=== PATIENT | male | born 1960 | race African-American/Black ===

== ENCOUNTER 2016-11-16 11:57 | Inpatient (IN) | payer MEDICAID, SELFPAY ==
[2016-11-16] MEDS ORDERED: Fentanyl 100 MCG/2 ML VIAL ONE (12:29)
[2016-11-16 12:49] LABS: #Eosinphils 0.3 thou/uL (0.0-0.7); #Lymphocytes 1.4 thou/uL (1.20-3.40); #Neutrophils 8.3 thou/uL (1.40-6.50); %Basophils 0.3 % (0.0-1.0); %Eosinophils 3.1 % (0.0-10.0); %Monocytes 9.1 % (0.0-10.0); Hematocrit 37.3 % (42.0-52.0); Mean Platelet Volume 7.4 fL (7.4-10.4); Red Blood Cell (RBC) Count 3.77 mill/uL (4.70-6.10); White Blood Cell (WBC) Count 11.1 thou/uL (4.8-10.8)
--- NOTE | 2016-11-16 13:03 | RAD ---
CHEST 2 VIEWS: History Chest pain. COMPARISON: 10/25/16. FINDINGS: Cardiac silhouette is magnified by projection. Pulmonary vasculature is upper limits of normal. Jodi ngs remain hyperinflated with scattered large bullae. Multiple masses within the left lung and at t he left hilum are similar in appearance to the previous exam. No pleural fluid is evident. IMPRESSION: Stable radiographic appearance of the left lung masses and severe emphysematous disease. POS: [facility]
[2016-11-16 13:09] LABS: ALT (SGPT) 13 U/L (8-55); AST (SGOT) 22 U/L (5-34); Alkaline Phosphatase 64 U/L (40-150); Anion Gap 13 mmol/L (10-20); BUN (Urea Nitrogen) 8 mg/dL (8.4-25.7); Bilirubin, Total 0.4 mg/dL (0.2-1.2); Calc. Creatinine Clearance 0 mL/min (70-130); Calcium 9.5 mg/dL (7.8-10.44); Carbon Dioxide 27 mmol/L (22-29); Chloride 101 mmol/L (98-107); Estimated GFR-MDRD Greater than 90; Globulin 3.9 g/dL (2.4-3.5); Protein, Total 7.2 g/dL (6.0-8.3)
[2016-11-16 13:13] LABS: Troponin I Less than 0.010 ng/mL (< 0.028)
[2016-11-16] MEDS ORDERED: Ondansetron ODT 4 MG TAB PO PRN (15:46)
[2016-11-16] MEDS ORDERED: Bisacodyl 5 MG TAB PO PRN (15:46)
[2016-11-16 16:57] VITALS: BMI 20.5
[2016-11-16] MEDS ORDERED: Ketorolac Tromethamine 30 MG/ML VIAL IVP SCH (17:45)
[2016-11-16] MEDS: HYDROcodone/Acetaminophen 10/325 mg Tablet PO PRN ×2 (17:45→23:34)
[2016-11-16 19:29] LABS: Bilirubin Negative (Negative); Blood, Urine Negative (Negative); Glucose, Urine (Dipstick) Negative (Negative); Ketone, Urine Negative (Negative); Nitrite Negative (Negative); Protein, Urine (Dipstick) Negative (Neg-Trace)
[2016-11-16 19:31] LABS: Bacteria/HPF None Seen HPF (None Seen); Hyaline Casts/LPF 0-3 HYALINE CAST LPF (0-3 Hyaline); RBC/HPF 0-3 HPF (0-3); Squamous Epithelial 0-3 HPF (0-3); WBC/HPF 0-3 HPF (0-3)
--- NOTE | 2016-11-16 22:08 | HP-2 ---
CODE STATUS: FULL. PRIMARY CARE PHYSICIAN: [facility]. ATTENDING: Evie Goncalves M.D. PGY1: Eleanor Mcdonnell DO CHIEF COMPLAINT: Shortness of breath and cough. HISTORY OF PRESENT ILLNESS: This is a 56-year-old male with a past medical history of poorly differentiated adenocarcinoma of the lung, emphysema, hypertension, and tobacco abuse that presents with progressive shortness of breath and chest pain with deep inspiration. He endorses cough with white phlegm and blood-tinged sputum that has been present for the past couple of days and has been worsening. He was diagnosed with pneumonia 2-3 weeks ago and treated in the hospital. Cough has been persistent since then. He was diagnosed with lung cancer on 08/29/2016. He is currently on chemotherapy which was initiated right after diagnosis. His last chemo session was 2016. He denies nausea, vomiting, or weakness. He endorses a left-sided headache. He was given DuoNebs and fluids in the ED. PAST MEDICAL HISTORY: 1. Poorly differentiated adenocarcinoma originating from left upper lobe. 2. Hypertension, not on medications. 3. Arthritis. 4. Emphysema. 5. Tobacco abuse. 6. Anxiety/depression. PAST SURGICAL HISTORY: Jaw surgery. ALLERGIES: No known drug allergies. MEDICATIONS: 1. Rhodes 10/325. 2. Keytruda 200 mg every 3 weeks. FAMILY HISTORY: Father has a history of throat cancer and was also a smoker. SOCIAL HISTORY: The patient is a 1-pack per day smoker since the age of 17. He states that he quit 1 month ago. He denies alcohol or drug use. He does have one daughter. REVIEW OF SYSTEMS: A 12-point review of systems was performed, all were negative except as listed in the HPI and as indicated below. The patient does endorse a drastic weight loss since August. He also complains of decreased appetite, night sweats, fatigue. He has vision changes secondary to cataracts. He complains of a cough, shortness of breath, and exercise intolerance as indicated in the HPI. He also endorses chest pain, which is musculoskeletal in nature. It is worse with deep inspiration. The patient also complains of constipation, dysuria, polyuria, and hesitancy. He has pain in his rib cage. He complains of weakness and numbness in the lower abdomen. He also endorses a history of depression. PHYSICAL EXAMINATION: VITAL SIGNS: Blood pressure 127/82, pulse 79, respiratory rate 22, T-max 99.1, pulse ox 99% on room air. Current weight 62.50 kilograms. GENERAL: Patient is alert and oriented x3, no acute distress, well-developed. He is thin, appropriately interactive. EYES: Eyes are not reactive to light. Conjunctivae within normal limits. ENT: Nasal mucosa within normal limits. NECK: Supple with lymphadenopathy bilaterally. CARDIOVASCULAR: Regular rate and rhythm. No murmurs or gallops. Radial and pedal pulses 2+. RESPIRATORY: Normal respiratory effort, no retractions. LUNGS: Clear to auscultation bilaterally. SKIN: Skin is warm and dry without evidence of cyanosis or lesions. ABDOMEN: Soft, tender to palpation in the right lower quadrant. Bowel sounds are positive in all 4 quadrants. No masses or distention. Prostate exam was performed. Prostate was enlarged and nodular. No hematochezia or evidence of hemorrhoids. Patient tolerated exam. EXTREMITIES: No clubbing, cyanosis, or edema. MUSCULOSKELETAL: Structure within normal limits. There is decreased tone. He has full range of motion. Patient was tender to palpation in the left rib cage and he did complain of tenderness underneath the nipple. There was a soft movable mass underneath the left nipple. NEUROLOGIC: No focal deficits. Cranial nerves II through XII intact. GCS 15. PSYCHIATRIC: Appropriate. LABORATORY DATA: 1. CBC: White blood cell count 11.1, hemoglobin 12.4, hematocrit 37.3, platelets of 394. 2. CMP: Sodium 137, potassium 3.5, chloride 101, bicarb 27, BUN 13, creatinine 8, glucose 88, calcium 9.5, total bilirubin 0.4, total protein 7.2, albumin 3.3, AST 22, ALT 13, alkaline phosphatase 64. 3. CK-MB 1, troponin less than 0.010. 4. Chest x-ray shows a stable appearance of left lung mass and severe emphysematous changes. ASSESSMENT AND PLAN: This is a 56-year-old male with past medical history of poorly differentiated adenocarcinoma of the lung, presents with a cough and shortness of breath. 1. Acute hypoxic respiratory failure secondary to chronic obstructive pulmonary disease exacerbation. The patient was started on Levaquin and prednisone. He has duonebs scheduled. One dose of Toradol was given for relief of musculoskeletal pain. Of note, troponin was negative. A 6-minute walk test was performed per nursing and they state that the oxygen level immediately dropped in the 70s upon walking. Case management will be consulted for administration of home oxygen. 2. Poorly differentiated adenocarcinoma of lung. The patient is currently on chemotherapy/immunotherapy with Keytruda 200 mg every 3 weeks. He was diagnosed in 08/2016. Palliative Care was consulted last time patient was in the hospital. We will consider consulting palliative care again during this hospital stay. Pain management with home medication. 3. Hemoptysis. This is likely associated with lung cancer and acute on chronic obstructive pulmonary disease exacerbation. We will continue to monitor and treat as appropriate. 4. Urinary retention. The patient has a history of urinary hesitancy and frequency. Postvoid residual was performed, which showed 127 mL. The UA is pending along with urine culture and PSA. Prostate exam was performed and did show evidence of an enlarged prostates and nodules, particularly on the right side. Flomax was started at this time. We will await the results of labs. DISPOSITION AND LENGTH OF HOSPITAL STAY: 2 days. Symptomatic medication will be provided. History and physical exam as well as management discussed with Dr. Goncalves. NAVYA
[2016-11-16] MEDS: Tamsulosin HCl 0.4 MG CAP PO SCH (22:23)
[2016-11-17] MEDS: HYDROcodone/Acetaminophen 10/325 mg Tablet PO PRN ×2 (04:40→08:45)
[2016-11-17 05:08] LABS: #Basophils 0.1 thou/uL (0.0-0.2); #Eosinphils 0.4 thou/uL (0.0-0.7); #Lymphocytes 1.4 thou/uL (1.20-3.40); #Neutrophils 5.7 thou/uL (1.40-6.50); %Basophils 0.7 % (0.0-1.0); %Lymphocytes 16.1 % (21.0-51.0); %Monocytes 11.2 % (0.0-10.0); Hematocrit 35.4 % (42.0-52.0); Mean Platelet Volume 7.1 fL (7.4-10.4); Red Blood Cell (RBC) Count 3.57 mill/uL (4.70-6.10); White Blood Cell (WBC) Count 8.6 thou/uL (4.8-10.8)
[2016-11-17 05:47] LABS: Anion Gap 12 mmol/L (10-20); BUN (Urea Nitrogen) 11 mg/dL (8.4-25.7); Calc. Creatinine Clearance 83 mL/min (70-130); Calcium 8.8 mg/dL (7.8-10.44); Carbon Dioxide 28 mmol/L (22-29); Chloride 101 mmol/L (98-107); Estimated GFR-MDRD Greater than 90
--- NOTE | 2016-11-17 06:45 | PDOC.FM ---
- Subjective Subjective: Patient doing well this AM. Still endorses cough with phlegm, but feels he is much improved after duoneb treatments. Apparently, nurse called [facility] rather than residency team regarding patient's poor pain control. [facility] ordered morphine for patient. I was given report this morning from morning nurse. Patient did not complain of any pain this AM. - Objective MAR Reviewed: Yes Vital Signs & Weight: Vital Signs (12 hours) Temp Pulse Resp BP Pulse Ox 11/17/16 02:01 93 18 99 11/17/16 00:00 98 11/16/16 23:40 98.6 F 87 20 138/79 97 11/16/16 23:23 80 18 100 11/16/16 20:00 98.6 F 87 20 11/16/16 19:37 99.1 F 88 20 120/66 98 Weight Weight 55.877 kg I&O: 11/15/16 11/16/16 11/17/16 06:59 06:59 06:59 Intake Total 700 Output Total 350 Balance 350 Result Diagrams: 11/17/16 04:51 11/17/16 04:51 EKG Reviewed by me: Yes Radiology Reviewed by me: Yes <Eleanor Mcdonnell - Last Filed: 11/17/16 10:58> - Objective Vital Signs & Weight: Vital Signs (12 hours) Temp Pulse Resp Pulse Ox 11/17/16 14:17 91 20 11/17/16 11:00 85 20 11/17/16 08:00 98.3 F 89 20 11/17/16 07:01 98 11/17/16 06:59 89 18 98 Weight Weight 123 lb 3 oz I&O: 11/16/16 11/17/16 11/18/16 06:59 06:59 06:59 Intake Total 700 Output Total 350 Balance 350 Result Diagrams: 11/17/16 04:51 11/17/16 04:51 <Evie Goncalves - Last Filed: 11/17/16 14:23> Phys Exam - Physical Examination Constitutional: NAD Coughing on exam HEENT: moist MMs Icteric slcera Neck: full ROM Lymphadenopathy cervical Respiratory: no wheezing, no rales, no rhonchi, clear to auscultation bilateral Cardiovascular: RRR, no significant murmur, no rub Gastrointestinal: soft, non-tender, no distention, positive bowel sounds Musculoskeletal: no edema, pulses present Breast bud like lump under left nipple. Painful to palpation Neurological: non-focal, moves all 4 limbs Psychiatric: normal affect, A&O x 3 Skin: cap refill <2 seconds Deviation from normal: tattoos <Eleanor Mcdonnell - Last Filed: 11/17/16 10:58> Dx/Plan (1) Acute respiratory failure with hypoxia Code(s): J96.01 - ACUTE RESPIRATORY FAILURE WITH HYPOXIA Status: Acute Plan: -2/2 COPD exacerbation -Patient desatting into upper 70's/low 80's when ambulating -CM consult for home O2 -Levoquin Day #2 -Steroids -Duonebs BLANCA and PRN -O2 monitoring (2) COPD with acute exacerbation Code(s): J44.1 - CHRONIC OBSTRUCTIVE PULMONARY DISEASE W (ACUTE) EXACERBATION Status: Acute Plan: -Severe emphysematous changes seen on cxr -Increased sputum production over the last several weeks -Levoquin day #2 -Steroids -Duonebs BLANCA and PRN (3) Adenocarcinoma of left lung Code(s): C34.92 - MALIGNANT NEOPLASM OF UNSP PART OF LEFT BRONCHUS OR LUNG Status: Acute Plan: -Stage IV poorly differentiated adenocarcinoma of lung -Diagnosed in August of 2016 -Has been undergoing immunotherapy since August; Keytruda 200 mg/q3w -Last immunotherapy 10/30/2016 -Follows with Dr. Ludwig -Painful lymph nodes; morphine PRN for pain and lidocaine patches PRN (4) HTN (hypertension), benign Code(s): I10 - ESSENTIAL (PRIMARY) HYPERTENSION Status: Acute Plan: -Untreated -Has been well controlled -138/79 today (5) Arthritis Code(s): M19.90 - UNSPECIFIED OSTEOARTHRITIS, UNSPECIFIED SITE Status: Acute Plan: -Not currently on any medications -Likely OA (6) Depression Code(s): F32.9 - MAJOR DEPRESSIVE DISORDER, SINGLE EPISODE, UNSPECIFIED Status : Acute (7) Tobacco dependence Code(s): F17.200 - NICOTINE DEPENDENCE, UNSPECIFIED, UNCOMPLICATED Status: Chronic Plan: -Schedule Hanger on cessation -States that he quit 1 month ago -Nicotine patch if desired (8) Urinary retention Code(s): R33.9 - RETENTION OF URINE, UNSPECIFIED Status: Acute Plan: -Difficulty urinating, hesitancy, frequency -Enlarged, nodular prostate on exam -PSA pending <Eleanor Mcdonnell - Last Filed: 11/17/16 10:58> Attending Addendum - Attending Addendum I personally evaluated the patient and discussed the management with Dr. Mcdonnell. I agree with the History, Examination, Assessment and Plan documented above with any addition or exceptions noted below. Patient still has lots of RLQ and right inguinal pain from lymph nodes. Also c/ o chest pain from lymph nodes/cancer. Able to urinate with Flomax and urine culture is pending. Will try Lidoderm patches for pain. Patient now has Medicaid , so will be able to get the medicine on discharge from hospital. If pain continues to be a problem, would consider adding scheduled morphine vs. discussing with Dr. Ludwig what his preferences are. PSA is still pending. Expect it to be high because prostate was nodular and enlarged. Will probably need outpatient urology evaluation for this. <Evie Goncalves - Last Filed: 11/17/16 14:23>
[2016-11-17] MEDS: predniSONE 20 MG TAB PO SCH (08:02)
[2016-11-17] MEDS ORDERED: FLU VACC QS2017-18 36 mo. & older 0.5 ML SYRINGE IM ONE (09:00)
[2016-11-17] MEDS: HYDROcodone/Acetaminophen 10/325 mg Tablet PO SCH ×3 (13:09→20:58)
[2016-11-17] MEDS: Tamsulosin HCl 0.4 MG CAP PO SCH (20:58)
[2016-11-18] MEDS: HYDROcodone/Acetaminophen 10/325 mg Tablet PO SCH ×3 (01:04→08:42)
[2016-11-18 05:03] LABS: #Eosinphils 0.1 thou/uL (0.0-0.7); #Lymphocytes 1.3 thou/uL (1.20-3.40); #Monocytes 0.8 thou/uL (0.11-0.59); #Neutrophils 9.8 thou/uL (1.40-6.50); %Basophils 0.1 % (0.0-1.0); %Eosinophils 0.6 % (0.0-10.0); %Lymphocytes 11.1 % (21.0-51.0); %Monocytes 6.9 % (0.0-10.0); Hematocrit 34.1 % (42.0-52.0); Mean Platelet Volume 7.3 fL (7.4-10.4); Red Blood Cell (RBC) Count 3.44 mill/uL (4.70-6.10)
[2016-11-18 05:15] LABS: Anion Gap 11 mmol/L (10-20); BUN (Urea Nitrogen) 9 mg/dL (8.4-25.7); Calc. Creatinine Clearance 89 mL/min (70-130); Calcium 9.2 mg/dL (7.8-10.44); Carbon Dioxide 27 mmol/L (22-29); Chloride 100 mmol/L (98-107); Estimated GFR-MDRD Greater than 90
--- NOTE | 2016-11-18 06:59 | PDOC.FM ---
- Subjective Subjective: No acute events overnight. Pt denies shortness of breath this morning. - Objective MAR Reviewed: Yes Vital Signs & Weight: Vital Signs (12 hours) Temp Pulse Resp BP Pulse Ox 11/18/16 05:55 91 18 97 11/18/16 02:08 90 18 98 11/17/16 23:04 91 18 98 11/17/16 20:00 98.3 F 101 H 12 98 11/17/16 19:59 98.3 F 101 H 12 129/63 98 Weight Weight 55.877 kg I&O: 11/16/16 11/17/16 11/18/16 06:59 06:59 06:59 Intake Total 700 1200 Output Total 350 3000 Balance 350 -1800 Result Diagrams: 11/18/16 04:37 11/18/16 04:37 Phys Exam - Physical Examination Constitutional: NAD HEENT: PERRLA, moist MMs, sclera anicteric Neck: no nodes Respiratory: no wheezing, no rales, no rhonchi Cardiovascular: RRR, no significant murmur, no rub Gastrointestinal: soft, non-tender, no distention, positive bowel sounds Musculoskeletal: no edema, pulses present Psychiatric: normal affect, A&O x 3 Dx/Plan (1) Acute respiratory failure with hypoxia Code(s): J96.01 - ACUTE RESPIRATORY FAILURE WITH HYPOXIA Status: Acute (2) COPD with acute exacerbation Code(s): J44.1 - CHRONIC OBSTRUCTIVE PULMONARY DISEASE W (ACUTE) EXACERBATION Status: Acute (3) Adenocarcinoma of left lung Code(s): C34.92 - MALIGNANT NEOPLASM OF UNSP PART OF LEFT BRONCHUS OR LUNG Status: Acute (4) Urinary retention Code(s): R33.9 - RETENTION OF URINE, UNSPECIFIED Status: Acute - Plan Plan: 1.)Acute Respiratory Failure with hypoxia-improved. Plan: Will talk with case management to get paperwork filled out for home oxygen. Continue duonebs scheduled and prn Continue Levaquin for 7 days Continue steroids for 5 days albuterol prn 2.)COPD with acute exacerbation- see above 3.)Adenocarcinoma of lung-chronic Plan: -Pt gets infusion treatments every three weeks with oncology; next one scheduled is on Monday 11/20 -Pain control: morphine and norco -topical lidocaine patch for painful lymph nodes 4.)Urinary Retention-improved Plan: -Pt's post void residual bladder scan showed ~130ml; pt was started on flomax and symptoms have improved. -PSA pending -Recommend outpatient follow-up with urology.
[2016-11-18] MEDS: predniSONE 20 MG TAB PO SCH (08:18)
[2016-11-18] MEDS: Lidocaine 5% Patch TD SCH (08:20)
[2016-11-18] MEDS ORDERED: Lidocaine 5% Patch TD SCH (09:00)
[2016-11-18] MEDS ORDERED: Pembrolizumab 200 MG in Sodium Chloride 0.9% 250 ML 250 ML IV SCH (12:00)
[2016-11-18] MEDS ORDERED: HYDROcodone/Acetaminophen 10/325 mg Tablet PO PRN (12:03)
[2016-11-18 12:57] LABS: ALT (SGPT) 13 U/L (8-55); AST (SGOT) 18 U/L (5-34); Alkaline Phosphatase 60 U/L (40-150); Anion Gap 14 mmol/L (10-20); BUN (Urea Nitrogen) 9 mg/dL (8.4-25.7); Bilirubin, Total 0.5 mg/dL (0.2-1.2); Calc. Creatinine Clearance 81 mL/min (70-130); Calcium 9.7 mg/dL (7.8-10.44); Carbon Dioxide 25 mmol/L (22-29); Chloride 99 mmol/L (98-107); Estimated GFR-MDRD Greater than 90; Globulin 3.9 g/dL (2.4-3.5); Protein, Total 7.3 g/dL (6.0-8.3); Uric Acid 5.2 mg/dL (3.5-7.2)
[2016-11-18] MEDS: HYDROcodone/Acetaminophen 10/325 mg Tablet PO PRN ×2 (13:27→19:44)
--- NOTE | 2016-11-18 14:03 | CON ---
DATE OF CONSULTATION: 11/18/2016 REASON FOR CONSULTATION: Lung cancer. HISTORY OF PRESENT ILLNESS: Mr. Bowling is an unfortunate 56-year-old gentleman who was diagnosed wit h stage IV adenocarcinoma of the lung in 08/2016. He was PD-L1 positive and began treatment with Ke ytruda immunotherapy on Friday10/09/2016, he has received 2 cycles. He presented to the emergen cy room on the with complaints of shortness of breath and chest pain with inspiration. His oxyg en level dropped into the 70s with ambulation. There was some questionable pneumonia, so he was adm itted and has been treated with antibiotics. During the course of the stay, he has slowly improved. His pain has been persistent and has had at the left chest area just below the nipple. He has bee n getting [place] round the clock with p.r.n. IV morphine. He is due for his third cycle of Keytruda on Friday11/20/2016. PAST MEDICAL HISTORY: 1. Metastatic adenocarcinoma of the lung. 2. Emphysema. 3. Arthritis. 4. Essential hypertension 5. Tobacco use. 6. Anxiety and depression. PAST SURGICAL HISTORY: A CT guided biopsy of the lung in August. ALLERGIES: No known drug allergies. HOME MEDICATIONS: [place] 10/325 one to two tablets q.6 hours p.r.n. pain. FAMILY HISTORY: His father has a history of throat cancer and smoking. SOCIAL HISTORY: Single, has one daughter who lives in [place]. Everyday smoker, with 20-pack-ye ar history. No alcohol or illicit drug use. REVIEW OF SYSTEMS: Twelve point review of systems is negative except for noted in HPI. PHYSICAL EXAMINATION: VITAL SIGNS: Temperature is 96.7, pulse is 85, respiratory rate 18, BP is 127/71, he is 97% on room air. GENERAL: Cachectic male in no acute distress. HEENT: Normocephalic, atraumatic. Pupils are equal and reactive to light. NECK: Supple without JVD or masses. CARDIOVASCULAR: Regular rate and rhythm. LUNGS: Clear, but diminished throughout. ABDOMEN: Soft, nontender, bowel sounds are positive. EXTREMITIES: No clubbing, cyanosis or edema. SKIN: No rash. LYMPHATIC: No adenopathy. NEUROLOGIC: Nonfocal. PSYCHIATRIC: Alert, oriented and appropriate. PERTINENT LABORATORY AND X-RAYS: Current WBCs are 12, hemoglobin 10.9, hematocrit 34.1, platelet co unt is 336,000. He has 82% neutrophils, 11% lymphocytes. Sodium 134, potassium 3.9, chloride 100, CO2 is 27, BUN is 9, creatinine is 0.72, calcium is 9.2. Chest x-ray showed stable appearance of hi s left lung mass and severe emphysema disease, no acute findings. ASSESSMENT AND PLAN: 1. Metastatic lung cancer. 2. Chronic obstructive pulmonary disease exacerbation and pain related to #1. DISCUSSION: Patient is due for Keytruda on Friday. We will give a dose while inpatient either t palmer or tomorrow. We will adjust his [place] to his home dosage, which is 2 q.6 hours. We will ask h im to limit morphine so we can make sure pain control prior to departure. He will be discharged herman e after chemotherapy or whenever it is okay with the [facility]. Thank you for the consult.
--- NOTE | 2016-11-18 14:10 | ADD-PRG ---
DATE OF SERVICE: 11/18/2016 This is an addendum to the note of Dr. Denise Mar. Mr. Bowling is resting comfortably this morning. His walk test revealed significant hypoxia. We are arranging for home O2. He will be discharged later today and continue to follow Oncology for treatm ent of his adenocarcinoma of the lung. We have also started Flomax for his BPH.
[2016-11-18] MEDS: Tamsulosin HCl 0.4 MG CAP PO SCH (19:45)
[2016-11-18] MEDS ORDERED: Lidocaine Patch Removal TOP SCH (21:00)
[2016-11-19] MEDS: HYDROcodone/Acetaminophen 10/325 mg Tablet PO PRN ×2 (01:51→08:00)
[2016-11-19 04:15] LABS: Free PSA 0.14 ng/mL
[2016-11-19 05:05] LABS: #Basophils 0.1 thou/uL (0.0-0.2); #Eosinphils 0.1 thou/uL (0.0-0.7); #Monocytes 1.1 thou/uL (0.11-0.59); #Neutrophils 11.8 thou/uL (1.40-6.50); %Basophils 0.5 % (0.0-1.0); %Eosinophils 0.4 % (0.0-10.0); %Lymphocytes 13.2 % (21.0-51.0); %Monocytes 7.1 % (0.0-10.0); Hematocrit 36.7 % (42.0-52.0); Mean Platelet Volume 7.3 fL (7.4-10.4); White Blood Cell (WBC) Count 14.9 thou/uL (4.8-10.8)
[2016-11-19 05:39] LABS: Anion Gap 13 mmol/L (10-20); BUN (Urea Nitrogen) 13 mg/dL (8.4-25.7); Calc. Creatinine Clearance 80 mL/min (70-130); Calcium 9.9 mg/dL (7.8-10.44); Carbon Dioxide 29 mmol/L (22-29); Chloride 100 mmol/L (98-107); Estimated GFR-MDRD Greater than 90
--- NOTE | 2016-11-19 06:35 | PDOC.FM ---
- Subjective Subjective: No acute complaints this morning. Denies shortness of breath. No concerns. - Objective MAR Reviewed: Yes Vital Signs & Weight: Vital Signs (12 hours) Temp Pulse Resp BP Pulse Ox 11/19/16 06:06 88 16 99 11/19/16 02:11 79 16 98 11/18/16 22:08 83 16 97 11/18/16 20:00 98.7 F 83 16 100 11/18/16 19:15 98.7 F 83 16 135/60 100 11/18/16 19:01 99 16 97 11/18/16 19:00 98.7 F 83 16 135/60 100 Weight Admit Weight 55.792 kg Weight 55.792 kg I&O: 11/17/16 11/18/16 11/19/16 06:59 06:59 06:59 Intake Total 700 1200 480 Output Total 350 3000 1200 Balance 350 1800 -720 Result Diagrams: 11/19/16 04:38 11/19/16 04:38 Phys Exam - Physical Examination HEENT: PERRLA, moist MMs, sclera anicteric Neck: no nodes, no JVD decreased breath sounds bilaterally; no wheezing Cardiovascular: RRR, no significant murmur, no rub, gallop Gastrointestinal: soft, non-tender, no distention, positive bowel sounds Musculoskeletal: no edema, pulses present Neurological: non-focal, normal sensation, moves all 4 limbs Lymphatic: no nodes Psychiatric: normal affect, A&O x 3 Skin: no rash Dx/Plan (1) Acute respiratory failure with hypoxia Code(s): J96.01 - ACUTE RESPIRATORY FAILURE WITH HYPOXIA Status: Acute (2) COPD with acute exacerbation Code(s): J44.1 - CHRONIC OBSTRUCTIVE PULMONARY DISEASE W (ACUTE) EXACERBATION Status: Acute (3) Adenocarcinoma of left lung Code(s): C34.92 - MALIGNANT NEOPLASM OF UNSP PART OF LEFT BRONCHUS OR LUNG Status: Acute (4) Urinary retention Code(s): R33.9 - RETENTION OF URINE, UNSPECIFIED Status: Acute - Plan Plan: 1.)Acute Respiratory Failure with hypoxia-improved. Plan: Pt approved for home O2. Continue duonebs scheduled and prn Continue Levaquin 750mg for 5 days Continue steroids for 5 days albuterol prn 2.)COPD with acute exacerbation- see above provided spiriva upon discharge. 3.)Adenocarcinoma of lung-chronic Plan: -Pt is s/p infusion treatment yesterday (11/18) -Pain control: morphine and norco -topical lidocaine patch for painful lymph nodes 4.)Urinary Retention-improved Plan: -Pt's post void residual bladder scan showed ~130ml; pt was started on flomax and symptoms have improved. -PSA pending -Recommend outpatient follow-up with urology. Dispo:Discharge home today Recommend close follow-up with Onc and PCP at [facility]. Pt can see us at [facility] if [facility] wont see him since he has medicaid now.
[2016-11-19 07:48] VITALS: BP 126/77; TEMP 98.5
[2016-11-19] MEDS: predniSONE 20 MG TAB PO SCH (08:02)
[2016-11-19] MEDS: Lidocaine 5% Patch TD SCH (08:04)
--- NOTE | 2016-11-19 11:55 | ADD-PRG ---
DATE OF SERVICE: 11/19/2016 This is an addendum to the note of Dr. Denise Mar. Mr. Bowling is resting comfortably with no new complaints. His oxygen has been ordered and is at the bedside. He is awaiting his [place] prescription from Oncology and thereafter will be discharged to [facility] up with them.
--- NOTE | 2016-11-20 11:18 | DIS-2 ---
DATE OF ADMISSION: 11/16/2016 DATE OF DISCHARGE: 11/19/2016 LOCATION: [facility]. ADMITTING RESIDENT: Eleanor Mcdonnell DO ADMITTING PHYSICIAN: Evie Goncalves M.D. DISCHARGE RESIDENT: Denise Sweeney MD DISCHARGE ATTENDING: Bhupendra Craig MD CONSULT: Oncology, case management, Palliative Care were all consulted. PROCEDURES: Chest x-ray which showed a stable radiographic appearance of the left lung masses and s evere emphysematous disease. PRIMARY DIAGNOSIS: Acute hypoxic respiratory failure secondary to chronic obstructive pulmonary dis ease exacerbation. SECONDARY DIAGNOSES: 1. Chronic obstructive pulmonary disease exacerbation. 2. Poorly differentiated adenocarcinoma of the lung. 3. Hypertension. 4. Arthritis. 5. Anxiety. 6. Depression. DISCHARGE MEDICATIONS: Levaquin 750 mg p.o. daily, tamsulosin 0.4 mg p.o. at night, Spiriva 18 mcg inhaled daily, prednisone 40 mg p.o. q.a.m. with meals. Forbes 10/325, 1-2 tabs every 6 hours as nee ded for pain. HISTORY OF PRESENT ILLNESS AND HOSPITAL COURSE: A 56-year-old male with a past medical history of p oorly differentiated adenocarcinoma of the lung, emphysema, hypertension and tobacco abuse who prese nts with progressive shortness of breath and chest pain with deep inspiration. The patient endorses cough with white phlegm and blood tinged sputum that has been present for the past couple days and has been worsening. The patient was diagnosed with pneumonia, treated 2 weeks ago and treated in [facility]. Cough has been persistent since then. He was diagnosed with adenocarcinoma of the lung on 08/29/2016. He is currently on chemotherapy which was initiated right after diagnosis. His las t chemo session was on 10/30/2016. On initial presentation, the patient denied nausea, vomiting or weakness. The patient did endorse a left-sided headache. The patient was given DuoNebs and fluids in the ER. The patient says he smokes a pack per day since age of 17. The patient has an approxima tely [id number] history. On admission, the patient's vital signs were within normal limits. The patient was not in respiratory distress. However, the patient's white blood cell count was 11.1. T he patient's CK-MB was normal and troponins were less than 0.01. The patient had a chest x-ray done , which showed a stable appearance of left lung mass and severe emphysematous change. The patient w as admitted for acute hypoxic respiratory failure secondary to chronic obstructive pulmonary disease exacerbation. 1. Acute hypoxic respiratory failure secondary to chronic obstructive pulmonary disease exacerbatio n. The patient was started on Levaquin and prednisone. The patient was provided with DuoNeb schedu led. The patient was given 1 dose of Toradol for relief of musculoskeletal pain. The patient's tro ponins were negative. The patient conducted a 6-minute walking test, which resulted in the patient desatting to the 70s upon walking. Case management was consulted and was able to assist in providin g the patient with home oxygen through approval of his insurance. The patient's exacerbation, impro sandra. The patient upon discharge was saturating in the mid to upper 90s on room air while sitting. It is just of note that patient continues to desat with walking; however, will have home oxygen now to assist with this pathology. 2. Poorly differentiated adenocarcinoma of the lung. The patient is currently on chemo/immunothera py with Keytruda 200 mg every 3 weeks. The patient was diagnosed in 08/2016. Since the patient is from out of town, we coordinated care with Oncology for him to receive his infusion immunotherapy tr eatment during his hospital stay. In addition, Palliative Care was consulted last time the patient was in the hospital and again was consulted at this time; however, the patient would like to continu e in a current chemo/immunotherapy, he is not interested in hospice at this time. 3. Urinary retention. The patient has a history of urinary hesitancy and frequency. A postvoid bl adder scan was performed, which showed 127 mL left in his bladder, which does not reflect a huge mariah unt of retention; however, the patient's prostate exam was performed and did show evidence of an enl arged prostate with nodule, particularly on the right side. Flomax was started and we recommended o utpatient followup if symptoms return. DISPOSITION: Stable. DISCHARGE INSTRUCTIONS: 1. Location: Home. 2. Diet: No restrictions. 3. Activity: As tolerated. Recommend wearing oxygen with ambulation. 4. Followup: Follow up with primary care provider at [facility] as well as Oncology within the next week.
== END 2016-11-19 12:10 | disposition home or self-care (01) | DRG 189 ==
LOC: ERS 11:57 → ONC 15:18 → INTOOBSV 15:18 → OBSVTOIN 15:18
PROVIDERS: ADMIT Family Medicine; ATTEND Family Medicine
DX: J96.01 Acute respiratory failure with hypoxia (principal); J44.1 Chronic obstructive pulmonary disease with (acute) exacerbation; C34.12 Malignant neoplasm of upper lobe, left bronchus or lung; N13.8 Other obstructive and reflux uropathy; I10 Essential (primary) hypertension; M19.90 Unspecified osteoarthritis, unspecified site; R33.8 Other retention of urine; N40.1 Benign prostatic hyperplasia with lower urinary tract symptoms; F17.210 Nicotine dependence, cigarettes, uncomplicated; F32.9 Major depressive disorder, single episode, unspecified; F41.9 Anxiety disorder, unspecified; Z92.21 Personal history of antineoplastic chemotherapy; Z80.1 Family history of malignant neoplasm of trachea, bronchus and lung; Z81.2 Family history of tobacco abuse and dependence
CPT/HCPCS: 36415; 71020; 80048; 80053; 81001; 82553; 84153; 84154; 84484; 84550; 85025; 87086; 93005; 94640; 96374; J1885; J1956; J2270; J3010; J7050; J7506; J7620; J9271

== ENCOUNTER 2016-11-23 23:07 | Inpatient (IN) | payer MEDICAID, SELFPAY ==
[~2016-11-23 23:07] MED LIST: ISOVUE-370 76%-LOCM 1 ML ONE
[2016-11-23 23:41] LABS: #Basophils 0.1 thou/uL (0.0-0.2); #Eosinphils 0.5 thou/uL (0.0-0.7); #Monocytes 0.9 thou/uL (0.11-0.59); #Neutrophils 10.7 thou/uL (1.40-6.50); %Basophils 0.6 % (0.0-1.0); %Eosinophils 3.8 % (0.0-10.0); %Monocytes 6.4 % (0.0-10.0); Hematocrit 36.1 % (42.0-52.0); Mean Platelet Volume 7.2 fL (7.4-10.4); Red Blood Cell (RBC) Count 3.65 mill/uL (4.70-6.10); White Blood Cell (WBC) Count 14.3 thou/uL (4.8-10.8)
[2016-11-23 23:56] LABS: Lactic Acid - Sepsis 2.1 mmol/L (0.5-2.2)
[2016-11-24] LABS: ALT (SGPT) 12 U/L (8-55); AST (SGOT) 19 U/L (5-34); Alkaline Phosphatase 59 U/L (40-150); Anion Gap 13 mmol/L (10-20); BUN (Urea Nitrogen) 12 mg/dL (8.4-25.7); Bilirubin, Total 0.3 mg/dL (0.2-1.2); Calc. Creatinine Clearance 0 mL/min (70-130); Calcium 9.1 mg/dL (7.8-10.44); Carbon Dioxide 23 mmol/L (22-29); Chloride 103 mmol/L (98-107); Estimated GFR-MDRD Greater than 90; Globulin 3.5 g/dL (2.4-3.5); Lipase 34 U/L (8-78); Protein, Total 6.7 g/dL (6.0-8.3)
[2016-11-24 00:04] LABS: Troponin I Less than 0.010 ng/mL (< 0.028)
[2016-11-24 02:23] LABS: Bilirubin Negative (Negative); Blood, Urine Negative (Negative); Glucose, Urine (Dipstick) Negative (Negative); Ketone, Urine Trace mg/dL (Negative); Nitrite Negative (Negative); Protein, Urine (Dipstick) Negative (Neg-Trace)
[2016-11-24] MEDS ORDERED: Sodium Chloride 0.45% 1,000 ML IV SCH (02:30)
[2016-11-24] MEDS ORDERED: Acetaminophen 325 MG TAB PO PRN (02:30)
[2016-11-24] MEDS ORDERED: HYDROcodone/Acetaminophen 5/325 mg Tablet PO PRN ×2 (02:30)
[2016-11-24] MEDS ORDERED: Ondansetron ODT 4 MG TAB SL PRN (02:30)
[2016-11-24] MEDS ORDERED: Ondansetron HCl/PF 4 MG/2 ML Vial IVP PRN (02:30)
[2016-11-24 02:53] VITALS: BMI 21.2
[2016-11-24] MEDS ORDERED: Ibuprofen 800 MG TAB PO PRN (02:58)
[2016-11-24] MEDS ORDERED: Bisacodyl 5 MG TAB PO PRN (02:58)
[2016-11-24] MEDS ORDERED: Ondansetron ODT 4 MG TAB PO PRN (02:58)
[2016-11-24] MEDS ORDERED: Albuterol Sulfate 2.5 mg/3 ml Neb NEB PRN (02:58)
[2016-11-24] MEDS ORDERED: Milk Of Magnesia 30 ML UDCUP PO PRN (02:58)
[2016-11-24] MEDS: Sodium Chloride 0.9% 1,000 ML IV SCH ×3 (03:24→22:26)
[2016-11-24 03:42] LABS: #Eosinphils 0.1 thou/uL (0.0-0.7); #Lymphocytes 0.8 thou/uL (1.20-3.40); #Monocytes 0.1 thou/uL (0.11-0.59); #Neutrophils 12.6 thou/uL (1.40-6.50); %Basophils 0.1 % (0.0-1.0); %Eosinophils 0.6 % (0.0-10.0); %Lymphocytes 5.9 % (21.0-51.0); Hematocrit 38.1 % (42.0-52.0); Mean Platelet Volume 7.4 fL (7.4-10.4); Red Blood Cell (RBC) Count 3.82 mill/uL (4.70-6.10); White Blood Cell (WBC) Count 13.7 thou/uL (4.8-10.8)
[2016-11-24 03:47] LABS: Anion Gap 11 mmol/L (10-20); BUN (Urea Nitrogen) 12 mg/dL (8.4-25.7); Calc. Creatinine Clearance 81 mL/min (70-130); Calcium 9.2 mg/dL (7.8-10.44); Carbon Dioxide 25 mmol/L (22-29); Chloride 102 mmol/L (98-107); Estimated GFR-MDRD Greater than 90
[2016-11-24 03:53] LABS: Troponin I Less than 0.010 ng/mL (< 0.028)
[2016-11-24 05:57] LABS: Troponin I Less than 0.010 ng/mL (< 0.028)
[2016-11-24] MEDS: Morphine Sulfate 2 MG/ML SYRINGE SLOW IVP PRN ×7 (06:27→23:54)
[2016-11-24] MEDS: Ipratropium Bromide 2.5 ml Neb NEB SCH ×4 (06:36→23:57)
[2016-11-24] MEDS ORDERED: Spiriva 18 MCG CAP (Box of 5 Caps) INH SCH (07:00)
--- NOTE | 2016-11-24 07:20 | HP-2 ---
CODE STATUS: FULL. PRIMARY CARE PHYSICIAN: [facility] (bounce back). ATTENDING: Dr. Bhupendra Craig. RESIDENT: Amara Pat DO. CHIEF COMPLAINT: Shortness of breath and chest pain. HISTORY OF PRESENT ILLNESS: Patient is a 56-year-old male with past medical history of stage IV lung carcinoma being treated with Keytruda every 3 weeks, presented with acute onset of chest pain and increased shortness of breath started this afternoon. The pain is located in the left lateral chest wall. The patient reports that it is worse with deep inspiration. He reported he had an episode of syncope today after a coughing spell and associated with chest pain and shortness of breath. Patient also reports hemoptysis that has been slowly worsening. No fever or chills. His last chemo was done about 1-1/2 weeks ago. The patient does report tender or swollen lymph node throughout. In the ER, he was given 4 mg of morphine and 500 mL of NS. PAST MEDICAL HISTORY: 1. Poorly differentiated adenocarcinoma of the lung. 2. Emphysema. 3. Hypertension. 4. Tobacco use. 5. Anxiety, depression. PAST SURGICAL HISTORY: Jaw surgery. ALLERGIES: GADOLINIUM containing CONTRAST MEDIA. MEDICATIONS: 1. Tamsulosin 0.4 mg. 2. Spiriva 18 mcg daily. 3. Lucile 10/325 1-2 tabs q.6 hours p.r.n. for pain. 4. Gabapentin 600 mg t.i.d. ? 5. ? Promethazine. FAMILY HISTORY: Father was diagnosed with throat carcinoma, also has a family history of smoking. SOCIAL HISTORY: Patient did smoke 1 pack per day for 40 years, but has since cut back and only has an occasional puff. Does have a 24-oins-uqti history though. Denies alcohol and drug use. REVIEW OF SYSTEMS: General: Negative for fever. Positive for weight loss since August. Positive for night sweats. Eyes: Denies eye pain. ENT: Denies sore throat. Respiratory: Does admit to productive cough with blood, sputum and shortness of breath. Cardiovascular: Positive for chest pain. Negative for palpitations, edema. Gastrointestinal: Positive for nausea. Negative for vomiting, negative for diarrhea. Positive for constipation. Genitourinary: Negative for incontinence or dysuria. Skin: Negative for rashes. Positive for lesions. Musculoskeletal: Positive for pain, tenderness, stiffness, or swelling. Neurologic: Negative for weakness or numbness. Positive for syncope. Psychiatric: Negative for anxiety or depression. PHYSICAL EXAMINATION: VITAL SIGNS: Blood pressure 109/83, pulse 95, respiratory rate 20, T-max 98.8, pulse ox 100% on 2 liters, current weight 56.7 kilograms. GENERAL: The patient is alert and oriented x4, in no acute distress. Does appear thin, cachectic looking, but response to questioning appropriately. EYES: EOMI. NECK: Supple. CARDIOVASCULAR: Regular rate and rhythm, no murmurs. Radial pulses 2+. Pedal pulse 2+. ABDOMEN: Soft with tenderness to palpation throughout with very minimal pressure. Bowel sounds present in all 4 quadrants. EXTREMITIES: No clubbing, cyanosis or edema. MUSCULOSKELETAL: Structure within normal limits. NEUROLOGIC: No focal deficits. LABORATORY DATA AND IMAGING: CBC: White blood cell count 14.3, hemoglobin 11.6 , hematocrit 36.1, platelets 354. Chemistries: Sodium 136, potassium 3.4, chloride 103, CO2 23, BUN 12, creatinine 0.81, glucose 126, calcium 9.1, total protein 6.7, albumin 3.2, ALT 19, AST 12, alkaline phosphatase 59, total bilirubin 0.3. Lactic acid 2.1. D-dimer 0.77. CK-MB 0.5, troponin less than 0.010. Lipase 34. BNP 87.1. EKG normal sinus rhythm, no ischemic changes. Chest x-ray show increased size of the left lung mass and stable emphysema. CTA with no evidence of PE. ASSESSMENT AND PLAN: 1. Atypical chest pain secondary to lung mass. Admit to oncology. Morphine 2 mg q.2 hours for pain. Consult oncology in the morning. Consider Anesthesia consult in a.m. O2 p.r.n. to keep sats 88-92%, NS 110. 2. Chronic obstructive pulmonary disease. Spiriva HandiHaler, albuterol p.r.n. , supplemental oxygen. 3. Arthritis. Home medications. 4. Deconditioning. Physical therapy and occupational therapy consult. Ensure shake b.i.d. DISPOSITION AND LENGTH OF HOSPITAL STAY: 1-2 days. Symptomatic medication will be provided. History and physical exam as well as management was discussed with Dr. Bhupendra Craig. [facility]
--- NOTE | 2016-11-24 07:31 | RAD ---
RADIOGRAPH CHEST 1 VIEW: Date: 11/23/16 Time: 2335 HOURS HISTORY: 56-year-old male with Stage IV left lung cancer, with hemoptysis and chest pain, and dyspnea. COMPARISON: 11/16/16. FINDINGS: There is interval increase in size of the large left pulmonary mass occupying a large portion of the left mid lung zone, encroaching upon the upper, and especially lower, lung zones. Bilateral mediast inal masses are again noted. Very large bulla at the lateral aspect of the right upper lobe, with ad jacent compressive atelectasis. Diffuse chronic bilateral interstitial densities. Interstitial densi ties have increased in the bilateral lower lung zones, especially the right lower lung zone, where t here is a small region of confluence. No cardiomegaly. Lateral costophrenic angles are sharp. No yomi dence of pneumothorax. IMPRESSION: 1. Interval increase in size of very large left pulmonary mass: growth of left lung cancer. 2. Mediastinal malignant lymphadenopathy. 3. Large right upper lobe bulla representing severe emphysema. 4. Interval development of mild, small, confluent air space density in the right lower lung zone, n onspecific. MADELYN [] POS: BRITTANY
[2016-11-24] MEDS ORDERED: FLU VACC QS2017-18 36 mo. & older 0.5 ML SYRINGE IM ONE (09:00)
[2016-11-24] MEDS: Enoxaparin Sodium 40 MG/0.4 ML SYRINGE SC SCH (09:06)
[2016-11-24] MEDS: Gabapentin 300 MG CAP PO SCH ×3 (09:06→20:27)
[2016-11-24] MEDS: Tamsulosin HCl 0.4 MG CAP PO SCH (09:06)
--- NOTE | 2016-11-24 13:13 | CT ---
PRELIMINARY REPORT/[facility]/EMERGENCY AFTER HOURS PROCEDURE: EXAM: CT Angiography Chest With Intravenous Contrast CLINICAL HISTORY: 56 years old, male; Signs and symptoms; Dyspnea; Patient HX: R/O pe TECHNIQUE: Axial computed tomographic angiography images of the chest with intravenous contrast using CT angiog bina protocol. CONTRAST: 100 mL of ISOVUE administered intravenously. COMPARISON: No relevant prior studies available. FINDINGS: VASCULATURE: Aorta: The ascending aorta at the level of the right pulmonary artery measures 3.2 cm. Mild atherosc lerotic calcifications affect the aorta. No aortic aneurysm. No dissection. Pulmonary arteries: The main pulmonary artery measures 2 cm. No evidence of acute pulmonary embolism upto the subsegmental level. Mild narrowing of the right main pulmonary artery and segmental branch es supplying the right upper lobe is due to mass effect from the surrounding lymphadenopathy. CHEST: Lungs: Extensive bullous changes are noted involving almost the entire right upper lobe. Moderate at electasis is seen in both lung bases. Moderate bullous emphysematous changes are noted in the left u pper lobe. A large mass measuring 11 x 8 x 10 cm is seen in the left upper lobe. Pleural space: Unremarkable. No significant effusion. No pneumothorax. Heart: Unremarkable. No cardiomegaly. No significant pericardial effusion. Bones/joints: There are mild degenerative changes present. No acute fracture. No dislocation. Soft tissues: Unremarkable. Lymph nodes: Mild enlargement of the mediastinal lymph nodes is seen the largest measuring 1.6 cm. M ildly enlarged right hilar lymph node measuring 2 cm is seen. ABDOMEN: A large cyst measuring 4 x 3.5 cm is seen in the anterior aspect of the spleen. IMPRESSION: 1. No evidence of acute pulmonary embolism upto the subsegmental level. 2. Large mass in the left upper lobe with mediastinal lymphadenopathy represents neoplasm. Comparison to prior studies is recommended. 3. Mild narrowing of the right main pulmonary artery and segmental branches supplying the right uppe r lobe is due to mass effect from the surrounding lymphadenopathy. 4. Extensive bullous changes involving almost the entire right upper lobe. Moderate bullous emphysem atous changes in the left upper lobe. 5. Large cyst in the anterior aspect of the spleen likely represents a posttraumatic cyst. Thank you for allowing us to participate in the care of your patient. Dictated and Authenticated by: Vania Hopson MD 11/24/2016 1:40 AM Central Time ([place] \T\ [place]) FINAL REPORT EMERGENCY AFTER HOURS CTA CHEST WITH CONTRAST: Date: 11/24/16 TECHNIQUE: Multiple contiguous axial images were obtained in a CTA of the chest per pulmonary embolism protocol . 3D oblique MIP reformats and direct coronal reformats were performed. COMPARISON: 09/08/16. FINDINGS/IMPRESSION: I agree with the findings and impression given in the preliminary report per [facility] physician. 1. No evidence of pulmonary thromboembolism. 2. There is an enlarging left upper lobe mass representing a neoplasm. 3. Emphysema. 4. New hypodensity in the spleen which may represent a cyst. This is nonspecific. A cystic metastas is is a possibility, but less likely. POS: LEORA
--- NOTE | 2016-11-24 14:50 | HP ---
I have reviewed the history and physical of Dr. Amara Pat and agreed with her assessment and plan. HISTORY OF PRESENT ILLNESS: Briefly, Mr. Bowling is a 56-year-old patient with stage IV lung cancer, who presented with some chest pain and shortness of breath after a fall at home. PHYSICAL EXAMINATION: VITAL SIGNS: His blood pressure is 110/80, his pulse rate is 80, respirations 14. He is afebrile, in no distress. HEENT: Moist mucous membranes. CARDIAC: PMI is in the fifth intercostal space midclavicular line. No gallop or murmur noted. LUNGS: Breath sounds are diminished without rales, wheezing or respiratory distress. ABDOMEN: Flat and soft. EXTREMITIES: No edema. NEUROLOGIC: No focal deficits. LABORATORY DATA: White count 14,300, hemoglobin 11.6, hematocrit 36.1. Chemistries: Sodium 136, p otassium 3.4, chloride 103, bicarbonate 23, BUN 12, creatinine 0.81. Chest x-ray shows the left agustina g mass and stable chronic obstructive pulmonary disease. CTA showed no evidence of PE. ASSESSMENT: Atypical chest pain, likely secondary to the patient's tumor. PLAN: We have discussed again with Mr. Bowling that we believe is a good idea for him to work with ak lliative care or hospice. He now seems willing and we will consult with palliative care. He should be ready for discharge later today or tomorrow.
[2016-11-25] MEDS: Morphine Sulfate 2 MG/ML SYRINGE SLOW IVP PRN ×8 (03:30→23:44)
[2016-11-25 04:33] LABS: Anion Gap 11 mmol/L (10-20); BUN (Urea Nitrogen) 10 mg/dL (8.4-25.7); Calc. Creatinine Clearance 94 mL/min (70-130); Calcium 8.8 mg/dL (7.8-10.44); Carbon Dioxide 25 mmol/L (22-29); Chloride 106 mmol/L (98-107); Estimated GFR-MDRD Greater than 90
[2016-11-25 04:42] LABS: Band 1 % (5-11); Hematocrit 33.2 % (42.0-52.0); Mean Platelet Volume 7.9 fL (7.4-10.4); Neutrophil 86 % (42-75); Red Blood Cell (RBC) Count 3.32 mill/uL (4.70-6.10); White Blood Cell (WBC) Count 21.5 thou/uL (4.8-10.8)
--- NOTE | 2016-11-25 05:43 | PDOC.FM ---
- Subjective Subjective: Patient doing well this morning. He states that he did have some night sweats last night. Denies fever, chest pain. States he has some draining from a spot on his buttocks this morning. - Objective MAR Reviewed: Yes Vital Signs & Weight: Vital Signs (12 hours) Temp Pulse Resp BP Pulse Ox 11/25/16 00:28 96 11/25/16 00:00 98.7 F 82 18 136/68 96 11/24/16 23:57 82 16 96 11/24/16 19:30 98.8 F 88 20 130/70 100 11/24/16 18:31 85 12 100 Weight Weight 58.06 kg I&O: 11/23/16 11/24/16 11/25/16 06:59 06:59 06:59 Intake Total 240 2410 Output Total 850 Balance 240 1560 Result Diagrams: 11/25/16 03:24 11/25/16 03:24 Radiology Reviewed by me: Yes <Clyde Nunez - Last Filed: 11/25/16 08:47> - Objective Vital Signs & Weight: Vital Signs (12 hours) Temp Pulse Resp BP BP Pulse Ox 11/25/16 07:43 98.6 F 74 18 127/74 97 11/25/16 06:22 65 16 98 11/25/16 00:28 96 11/25/16 00:00 98.7 F 82 18 136/68 96 11/24/16 23:57 82 16 96 Weight Weight 128 lb I&O: 11/24/16 11/25/16 11/26/16 06:59 06:59 06:59 Intake Total 240 2410 Output Total 850 Balance 240 1560 Result Diagrams: 11/25/16 03:24 11/25/16 03:24 <Angel Sarmiento - Last Filed: 11/25/16 11:16> Phys Exam - Physical Examination Constitutional: NAD HEENT: PERRLA, moist MMs, sclera anicteric Neck: no JVD, supple, full ROM Rhonchi and decreased breath sounds on auscultation Cardiovascular: RRR, no significant murmur, no rub Gastrointestinal: soft, non-tender, no distention Musculoskeletal: no edema, pulses present Neurological: non-focal, normal sensation, moves all 4 limbs Psychiatric: normal affect, A&O x 3 <Clyde Nunez - Last Filed: 11/25/16 08:47> Dx/Plan (1) Atypical chest pain Code(s): R07.89 - OTHER CHEST PAIN Status: Acute Plan: Likely secondary to L lung carcinoma -continue pain management with morphine -O2 PRN to keep sats 88-92% -NS 110 (2) Adenocarcinoma of left lung Code(s): C34.92 - MALIGNANT NEOPLASM OF UNSP PART OF LEFT BRONCHUS OR LUNG Status: Acute Plan: CXR: increased size of L pulmonary mass, Palliative Care consulted -Consider Hospice consult (3) COPD (chronic obstructive pulmonary disease) Status: Chronic Plan: Chronic: currently stable Spiriva Handihaler, albuterol PRN, supplemental (4) Physical deconditioning Code(s): R53.81 - OTHER MALAISE Status: Acute Plan: -consult palliative care - Plan Plan: Repeat CXR today, consult palliative care and hospice. <Clyde Nunez - Last Filed: 11/25/16 08:47> Attending Addendum - Attending Addendum I personally evaluated the patient and discussed the management with Dr. Nunez I agree with the History, Examination, Assessment and Plan documented above with any addition or exceptions noted below. Patient needs aggressive pain management and Hospice. Hospice consult is pending. We will start him on Morphine. Home soon <Angle Sarmiento - Last Filed: 11/25/16 11:16>
[2016-11-25] MEDS: Ipratropium Bromide 2.5 ml Neb NEB SCH ×3 (06:22→20:51)
[2016-11-25] MEDS: Sodium Chloride 0.9% 1,000 ML IV SCH ×2 (08:53→17:12)
[2016-11-25] MEDS: Tamsulosin HCl 0.4 MG CAP PO SCH (08:53)
[2016-11-25] MEDS: Gabapentin 300 MG CAP PO SCH ×3 (08:54→21:08)
[2016-11-25] MEDS: Enoxaparin Sodium 40 MG/0.4 ML SYRINGE SC SCH (08:55)
--- NOTE | 2016-11-25 10:50 | RAD ---
CHEST 2 VIEWS: Date: 11/25/16 HISTORY: Increasing white blood cell count in the setting of adenocarcinoma. COMPARISON: Chest radiograph dated 11/16/16. CTA chest dated 11/24/16. FINDINGS: Large right upper lobe bulla similar. Left-sided mass as well as adenopathy is similar. There is tyshawn e scarring right lower lobe. No new focal air space consolidation is appreciated. IMPRESSION: 1. No evidence of pneumonia. 2. Left lung mass and mediastinal adenopathy. POS: MED
[2016-11-26] MEDS: Ipratropium Bromide 2.5 ml Neb NEB SCH ×2 (01:21→07:29)
[2016-11-26] MEDS: Morphine Sulfate 2 MG/ML SYRINGE SLOW IVP PRN ×2 (01:36→03:33)
[2016-11-26 03:53] LABS: #Basophils 0.1 thou/uL (0.0-0.2); #Eosinphils 0.1 thou/uL (0.0-0.7); #Lymphocytes 1.6 thou/uL (1.20-3.40); #Monocytes 1.3 thou/uL (0.11-0.59); #Neutrophils 9.8 thou/uL (1.40-6.50); %Basophils 0.5 % (0.0-1.0); %Eosinophils 1.1 % (0.0-10.0); %Lymphocytes 12.2 % (21.0-51.0); Hematocrit 35.7 % (42.0-52.0); Mean Platelet Volume 7.5 fL (7.4-10.4); Red Blood Cell (RBC) Count 3.62 mill/uL (4.70-6.10); White Blood Cell (WBC) Count 12.8 thou/uL (4.8-10.8)
[2016-11-26 04:01] LABS: Anion Gap 11 mmol/L (10-20); BUN (Urea Nitrogen) 9 mg/dL (8.4-25.7); Calc. Creatinine Clearance 90 mL/min (70-130); Calcium 8.6 mg/dL (7.8-10.44); Carbon Dioxide 28 mmol/L (22-29); Chloride 100 mmol/L (98-107); Estimated GFR-MDRD Greater than 90
[2016-11-26] MEDS ORDERED: HYDROcodone/Acetaminophen 10/325 mg Tablet PO PRN (05:48)
--- NOTE | 2016-11-26 05:53 | PDOC.FM ---
- Subjective Subjective: Mr. Bowling is doing well this morning. There were no acute events overnight. He states that he is in a little more pain than yesterday because we have taken him off of the morphine and switched him back to the norco . He states that he would feel more comfortable going home with morphine because he feels the norco pills do not adequately treat his pain and he is only able to get about 3 hours of sleep before being awoken by the pain. With the morphine, he can get up to 6-8 hours of sleep. He states that his abscess site that spontaneous drained is not too tender. He denies fever, dyspnea, n/v/d. - Objective MAR Reviewed: Yes Vital Signs & Weight: Vital Signs (12 hours) Temp Pulse Resp BP Pulse Ox 11/26/16 04:00 99.7 F H 11/26/16 01:21 96 18 96 11/26/16 00:47 99 11/25/16 23:58 98.9 F 11/25/16 20:51 86 18 96 11/25/16 19:25 99.6 F 78 18 134/77 99 Weight Weight 58.06 kg I&O: 11/24/16 11/25/16 11/26/16 06:59 06:59 06:59 Intake Total 240 2410 3100 Output Total 850 3900 Balance 240 1560 -800 Result Diagrams: 11/26/16 03:22 11/26/16 03:22 Radiology Reviewed by me: Yes <Clyde Nunez - Last Filed: 11/26/16 08:19> - Objective Vital Signs & Weight: Vital Signs (12 hours) Temp Pulse Resp BP Pulse Ox 11/26/16 08:19 98.7 F 80 18 120/75 99 11/26/16 08:00 98.7 F 80 18 99 11/26/16 07:29 90 16 11/26/16 04:00 99.7 F H 11/26/16 01:21 96 18 96 11/26/16 00:47 99 11/25/16 23:58 98.9 F Weight Weight 128 lb I&O: 11/25/16 11/26/16 11/27/16 06:59 06:59 06:59 Intake Total 2410 3100 Output Total 850 3900 Balance 1560 -800 Result Diagrams: 11/26/16 03:22 11/26/16 03:22 <Angel Sarmiento - Last Filed: 11/26/16 10:44> Phys Exam - Physical Examination Constitutional: NAD HEENT: moist MMs, sclera anicteric Neck: no JVD, supple, full ROM Respiratory: no wheezing decreased breath sounds on the left, lungs more clear than yesterday Cardiovascular: RRR, no significant murmur Gastrointestinal: soft, non-tender, no distention Musculoskeletal: no edema, pulses present Neurological: non-focal, moves all 4 limbs Psychiatric: normal affect, A&O x 3 <Clyde Nunez - Last Filed: 11/26/16 08:19> Dx/Plan (1) Atypical chest pain Code(s): R07.89 - OTHER CHEST PAIN Status: Acute Plan: Likely secondary to L lung carcinoma -d/c morphine, switch to PO Parks 10/325 -O2 PRN to keep sats 88-92% -NS 110 (2) Adenocarcinoma of left lung Code(s): C34.92 - MALIGNANT NEOPLASM OF UNSP PART OF LEFT BRONCHUS OR LUNG Status: Acute Plan: CXR: increased size of L pulmonary mass, Palliative Care consulted -Patient refused palliative and hospice care -would like to continue therapeutic chemo (3) COPD (chronic obstructive pulmonary disease) Status: Chronic Plan: Chronic: currently stable Spiriva Handihaler, albuterol PRN, supplemental Will be d/c'd on normal regimen (4) Physical deconditioning Code(s): R53.81 - OTHER MALAISE Status: Acute Plan: -refused palliative care - Plan Plan: Discharge today with oral analgesics, patient prefers morphine, over norco, stating that norco does not control his pain <Clyde Nunez - Last Filed: 11/26/16 08:19> Attending Addendum - Attending Addendum I personally evaluated the patient and discussed the management with Dr. Nunez I agree with the History, Examination, Assessment and Plan documented above with any addition or exceptions noted below. Patient will be discharged home. Since pain control is primary issue, we will start MS Contin 30 mg bid with MS IR 15 mg for breakthrough. Followup with Oncology. <Angel Sarmiento - Last Filed: 11/26/16 10:44>
[2016-11-26] MEDS: HYDROcodone/Acetaminophen 10/325 mg Tablet PO PRN ×2 (06:35→10:38)
[2016-11-26 08:19] VITALS: BP 120/75; TEMP 98.7
[2016-11-26] MEDS: Enoxaparin Sodium 40 MG/0.4 ML SYRINGE SC SCH (08:20)
[2016-11-26] MEDS: Tamsulosin HCl 0.4 MG CAP PO SCH (08:20)
[2016-11-26] MEDS: Gabapentin 300 MG CAP PO SCH (08:20)
--- NOTE | 2016-11-26 12:57 | DIS-2 ---
DATE OF ADMISSION: 11/24/2016 DATE OF DISCHARGE: 11/26/2016 RESIDENT: Clyde Nunez M.D. ADMITTING ATTENDING: Bhupendra Craig M.D. DISCHARGE ATTENDING: Dr. Angel Sarmiento CONSULTATIONS 1. Dr. Ludwig, Oncology on 11/24/2016. 2. Hospice agency 11/25/2016. 3. Palliative care team 11/24/2016. PROCEDURES: 1. Chest radiograph on 11/23/2016: Impression: Interval increase in size of very large left pulmo nary mass, growth of left lung cancer. Mediastinal malignant lymphadenopathy and large right upper lobe bulla representing severe emphysema. 2. CTA of chest with and without contrast. Impression: No evidence of acute pulmonary embolism up to the subsegmental level, large mass in the left upper lobe with mediastinal lymphadenopathy, mild narrowing of the right main pulmonary artery and segmental branches supplying the right upper lobe due to mass effect. Extensive bullous changes involving almost the entire right upper lobe, moderat e bullous emphysematous changes in the left upper lobe and large cyst in the anterior aspect of the spleen. 3. Chest x-ray 11/25/2016: Impression: No evidence of pneumonia. Left lung mass and mediastinal a denopathy. PRIMARY DIAGNOSES: Adenocarcinoma of the left lung with associated chest pain. SECONDARY DIAGNOSES: 1. Atypical chest pain. 2. Hypertension. 3. Chronic obstructive pulmonary disease. 4. Hypertension. DISCHARGE MEDICATIONS: Resume at home: 1. Ipratropium/albuterol 3 mL nebs q.4 h. 2. Tamsulosin 0.4 mg p.o. at bedtime. NEW HOME MEDICATIONS: 1. Dulcolax 10 mg p.o. daily p.r.n. 2. Morphine sulfate 15 mg p.o. q.4 h. p.r.n. for pain. 3. Morphine sulfate ER 30 mg p.o. q.12 h. for pain. 4. MiraLax 17 grams p.o. daily. DISCONTINUED MEDICATIONS: Morphine sulfate 4 mg IV push q.4. p.r.n., acetaminophen 650 mg p.o. q.4 h. p.r.n., Lafferty 5/325 two tabs p.o. q.6 h. p.r.n., Atrovent 2.5 mL nebs q.6 hour. HISTORY OF PRESENT ILLNESS AND HOSPITAL COURSE: Efrain Bowling is a 56-year-old male with past medica l history of stage IV lung adenocarcinoma being treated with Keytruda every 3 weeks, who presents wi th acute onset of chest pain and increased shortness of breath that started this afternoon. The lynda n was located on the left lateral chest wall and it was worse with deep inspiration. He reported th at he took off his oxygen and went outside to smoke and walk and he fell down on the left side of hi s chest. The pain hurts with coughing. His last chemo treatment was about 1 to 1-1/2 weeks ago. I n the ER, he was given 4 mg of morphine and 5 mL of normal saline. The patient had a white blood ce ll count of 14.3, hemoglobin of 11.6, hematocrit 36.1, platelets of 354. Lactic acid 2.1. D-dimer 0.77, CK-MB of 0.5. Troponin less than 0.01. BNP of 87. EKG showed normal sinus rhythm with no is chemic changes. Chest x-ray showed increased size of left lung mass and stable emphysema. CTA show ed no evidence of PE. The patient was admitted to Oncology, given more morphine 2 mg q.2 h. for lynda n. Oncology was consulted and recommended speaking to the patient about hospice and palliative care . Both hospice and palliative care were consulted as well. They saw the patient on 11/25/2016. Th e patient refused both hospice and palliative care due to wanting to continue therapeutic chemothera py. The patient was ready for discharge on 11/26/2016 after achieving better control of his pain. The patient was discharged on extended release morphine with morphine for breakthrough pain. The diallo cao was in agreement with the plan to be discharged on new pain medications and will follow up wit h his Oncology doctor to discuss the future management of his cancer. He will be continued on his d aily COPD medications. DISPOSITION: Guarded. DISCHARGE INSTRUCTIONS: 1. Location: Home. 2. Diet: No restrictions. 3. Activity: As tolerated. 4. Follow up with primary care doctor in 1-2 weeks and Oncology doctor, Dr. Ludwig at next [facility] ed appointment.
== END 2016-11-26 13:21 | disposition home or self-care (01) | DRG 948 ==
LOC: ERS 23:07 → ONC 11-24 01:21
PROVIDERS: ADMIT Family Medicine; ATTEND Family Medicine
DX: G89.3 Neoplasm related pain (acute) (chronic) (principal); C34.92 Malignant neoplasm of unspecified part of left bronchus or lung; I10 Essential (primary) hypertension; J44.9 Chronic obstructive pulmonary disease, unspecified; F17.210 Nicotine dependence, cigarettes, uncomplicated; M19.90 Unspecified osteoarthritis, unspecified site; F41.9 Anxiety disorder, unspecified
CPT/HCPCS: 36415; 71010; 71020; 71275; 80048; 80053; 81003; 82553; 83605; 83690; 83880; 84484; 85025; 85379; 87070; 87077; 87186; 87205; 93005; 94640; 96374; A4216; G8978-GP-CI; G8979-GP-CI; G8980-GP-CI; G8987-GO-CI; G8988-GO-CI; G8989-GO-CI; J1650; J2270; J7644

== ENCOUNTER 2016-12-02 09:33 | Observation (INO) | payer MEDICAID ==
[2016-12-02 10:36] LABS: #Lymphocytes 0.5 thou/uL (1.20-3.40); #Monocytes 0.4 thou/uL (0.11-0.59); #Neutrophils 13.3 thou/uL (1.40-6.50); %Basophils 0.2 % (0.0-1.0); %Eosinophils 0.2 % (0.0-10.0); %Lymphocytes 3.5 % (21.0-51.0); %Monocytes 3.1 % (0.0-10.0); Hematocrit 37.3 % (42.0-52.0); Mean Platelet Volume 7.4 fL (7.4-10.4); Red Blood Cell (RBC) Count 3.87 mill/uL (4.70-6.10); White Blood Cell (WBC) Count 14.3 thou/uL (4.8-10.8)
[2016-12-02 10:43] LABS: PTT 35.6 SEC (22.9-36.1); Prothrombin Time 15.8 SEC (12.0-14.7)
[2016-12-02] MEDS ORDERED: Dexamethasone 10 MG/ML VIAL ONE ×2 (10:53→10:54)
[2016-12-02 11:01] LABS: ALT (SGPT) 31 U/L (8-55); AST (SGOT) 40 U/L (5-34); Alkaline Phosphatase 71 U/L (40-150); Anion Gap 15 mmol/L (10-20); BUN (Urea Nitrogen) 11 mg/dL (8.4-25.7); Bilirubin, Total 1.3 mg/dL (0.2-1.2); CK (CPK) 64 U/L (30-200); Calc. Creatinine Clearance 0 mL/min (70-130); Carbon Dioxide 22 mmol/L (22-29); Chloride 95 mmol/L (98-107); Estimated GFR-MDRD Greater than 90; Globulin 4.2 g/dL (2.4-3.5); Lipase Less than 4 U/L (8-78); Protein, Total 7.4 g/dL (6.0-8.3)
--- NOTE | 2016-12-02 11:04 | RAD ---
PORTABLE CHEST 1 VIEW: Date: 12/02/16 Time: 1034 hours HISTORY: Allergic reaction with rash and shortness of breath and fever. Patient is currently undergoing chemo therapy. FINDINGS: Comparison made with exam of 11/25/16. Bullous changes are again noted with large bullae in the right upper lobe. Left-sided lung mass and mediastinal lymphadenopathy redemonstrated. No definite pneumothoraces or pleural effusions are seen . Scarring in the right lower lobe is stable. IMPRESSION: Stable exam. POS: [facility]
[2016-12-02 11:14] LABS: Lactic Acid - Sepsis 1.5 mmol/L (0.5-2.2)
[2016-12-02] MEDS ORDERED: diphenhydrAMINE 50 MG/ML VIAL IVP PRN (13:43)
[2016-12-02] MEDS ORDERED: Ondansetron ODT 4 MG TAB SL PRN (13:44)
[2016-12-02] MEDS ORDERED: Sodium Chloride 0.9% 1,000 ML IV SCH (13:44)
[2016-12-02] MEDS ORDERED: Ondansetron HCl/PF 4 MG/2 ML Vial IVP PRN (13:44)
[2016-12-02] MEDS ORDERED: diphenhydrAMINE 25 MG CAP PO PRN (15:05)
[2016-12-02] MEDS ORDERED: Bisacodyl 5 MG TAB PO PRN (15:35)
[2016-12-02 16:18] VITALS: BMI 20.4
[2016-12-02] MEDS: Morphine IR Tab 15 MG TAB PO PRN ×2 (17:25→21:29)
--- NOTE | 2016-12-02 19:21 | CON ---
DATE OF CONSULTATION: 12/02/2016 REASON FOR CONSULTATION: Metastatic lung cancer. HISTORY OF PRESENT ILLNESS: Mr. Bowling is a 56-year-old gentleman who was diagnosed with metastatic lung cancer in 08/2016. He strongly expressed PD-L1 and was started on immunotherapy with Keytruda. He received 3 doses. His last dose was approximately 2 weeks ago. He has significant pain since diagnosis. He was previously seen in this hospital last week where he was given long- acting and short-acting morphine. He was sent home with oxygen as his oxygen saturation dropped to 80s with ambulation. Imaging at the last visit showed increase in the left side lung mass and mediastinal lymphadenopathy. Dr. Ludwig felt that he was progressing on Keytruda. We recommended placing the patient on hospice. A nurse went to his house but he refused. This past weekend , he sat outside with family and developed a rash on his chest, neck, and back. He called 911 and came to the emergency room for evaluation. He was again admitted. We were asked to see the patient regarding treatment options. He states his pain is controlled well with oral morphine. PAST MEDICAL HISTORY: 1. Stage IV lung cancer. 2. Emphysema. 3. Arthritis. 4. Hypertension. 5. Anxiety and depression. 6. Tobacco use. PAST SURGICAL HISTORY: Lung biopsy. ALLERGIES: No known drug allergies. HOME MEDICATIONS: 1. Morphine 30 mg extended release p.o. b.i.d. 2. Morphine immediate release 15 mg q.4 h. p.r.n. FAMILY HISTORY: His father has a history of throat cancer with smoking. SOCIAL HISTORY: Single, has one daughter who lives in [place]. Every day tobacco use, no illicit drug use or alcohol use. REVIEW OF SYSTEMS: Ten point review of systems negative except for noted in HPI. PHYSICAL EXAMINATION: VITAL SIGNS: Temperature is 97.8, pulse is 80, respiratory rate 18, BP is 115/ 61. He is 93% on room air. GENERAL: This is a cachectic male, in no acute distress. HEENT: Normocephalic, atraumatic. Pupils equal and reactive to light. NECK: Supple. CARDIOVASCULAR: Regular rate and rhythm. LUNGS: Clear to auscultation anteriorly. ABDOMEN: Soft, nontender, bowel sounds are positive. EXTREMITIES: No clubbing, cyanosis or edema. SKIN: He has a maculopapular rash on his sternum, neck and back with erythema. HEMATOLOGIC: No petechia or purpura. NEUROLOGIC: Nonfocal. PSYCHIATRIC: The patient is alert and oriented. PERTINENT LABORATORY DATA AND X-RAYS: Current WBCs of 14.3, hemoglobin 12.3, hematocrit 37.3, platelet count is 342,000, and 93% neutrophils, 3% lymphocytes. Sodium 128, potassium 4.4, chloride 95, CO2 is 22. BUN is 11, creatinine 0.85, calcium 9, total bilirubin is 1.3, AST is 40, ALT is 31, alkaline phosphatase is 71, creatinine kinase is 64. BNP is 98, serum total protein 7.4, albumin 3.2, globulin 4.2, lipase is less than 4. ASSESSMENT: 1. Metastatic lung cancer with progression on Keytruda. 2. Rash secondary to sun exposure and immunotherapy. 3. Intractable pain secondary to large tumor burden, improved with oral morphine. 4. Hyperbilirubinemia. 5. Hyponatremia. DISCUSSION: We will add hydrocortisone cream for his rash and continue the Benadryl p.r.n. He has been restarted on morphine for pain. We will use oxygen p.r.n. We have discussed in the past hospice. He has declined. He is not a candidate for chemotherapy secondary to extremely poor performance status with multiple social issues. Our returned case inspector will discuss further with the patient tomorrow. Thank you for the consult. We will follow his hospital course closely. NAVYA
[2016-12-02] MEDS: Hydrocortisone 1% Cream 1.5 GM Packet TOP SCH (20:27)
[2016-12-02] MEDS: Morphine ER 30 MG TAB PO SCH (20:27)
[2016-12-02] MEDS ORDERED: Dexamethasone 4 mg/ml Vial SLOW IVP SCH (21:00)
[2016-12-02] MEDS ORDERED: Tamsulosin HCl 0.4 MG CAP PO SCH (21:00)
--- NOTE | 2016-12-02 23:33 | HP-2 ---
DATE OF ADMISSION: 12/02/2016 CODE STATUS: FULL. PRIMARY CARE PHYSICIAN: [facility]. ATTENDING PHYSICIAN: Jacqueline Roblero M.D. RESIDENT: Leeann Kohli MD Historian: Self. SPECIALISTS: Oncologist, Dr. Ludwig. CHIEF COMPLAINT: Rash and shortness of breath. HISTORY OF PRESENT ILLNESS: This is a 56-year-old male with a past medical history of stage IV adenocarcinoma of the left lung and COPD, who presented to the ED by EMS complaining of shortness of breath and rash. He reports that the rash started 3 days ago on his face and spread to his neck and chest and that it was very itchy and burning. The itching got worse this morning. He reports that his throat got swollen starting late yesterday evening. The patient was concerned that this was due to being recently switched to a regimen of short- acting and long-acting morphine as opposed to being on [place] for pain control. Upon further questioning, the patient revealed that he spent all weekend out in the sun with his family, even though he was advised not to do this by his oncologist due to potential side effect reaction from his chemo. Upon arriving , EMS reported that the patient was breathing 30 to 40 times per minute and wheezing. He was given 0.3 mg of epinephrine, 300 mg normal saline, 50 mg Benadryl, and 125 mg Solu-Medrol by EMS. The patient reports persistent cough productive of clear sputum with occasional blood secondary to his cancer, he also reports ongoing constipation. The patient has also been having sore throat , nasal congestion and rhinorrhea going on for the past several days. In the ER , he was given 10 mg of Decadron and 1 liter normal saline. PAST MEDICAL HISTORY: Stage IV adenocarcinoma of the left lung, COPD. PAST SURGICAL HISTORY: Jaw surgery. ALLERGIES: GADOLINIUM-CONTAINING CONTRAST. MEDICATIONS: 1. Ipatropium and albuterol nebs q.4 hours p.r.n. 2. Tamsulosin 0.4 mg p.o. at bedtime. 3. Dulcolax 10 mg p.o. daily p.r.n. 4. Morphine 15 mg p.o. q. 4 hours, p.r.n. pain. 5. MiraLax 17 grams p.o. daily. 6. Keytruda chemo, last treatment was in October. 7. Morphine extended release 30 mg p.o. BID. FAMILY HISTORY: Dad with throat cancer. SOCIAL HISTORY: Tobacco, smoked 1 pack per day for 40 years, now reports smoking 1 cigarette per day. Denies alcohol or drug use. REVIEW OF SYSTEMS: A 12-point review of systems was conducted was negative, except for what was mentioned in the HPI. PHYSICAL EXAMINATION: VITAL SIGNS: Blood pressure 117/87, pulse 104, respiratory rate 18, temperature 100.1, pulse ox 93% on room air, weight 61.23 kilograms. GENERAL: Alert, oriented x3, in no acute distress, thin, appropriately interactive. EYES: Pupils are equal, round, reactive to light. Extraocular muscles intact. Conjunctivae within normal limits. ENT: Nasal mucosa and oropharynx within normal limits. NECK: Supple, no lymphadenopathy, no thyromegaly. CARDIOVASCULAR: Regular rate and rhythm, no murmurs, 2+ radial and pedal pulses. RESPIRATORY: Normal effort, no retractions. Decreased breath sounds on the left. SKIN: Warm and dry, no cyanosis. ABDOMEN: Soft, normoactive bowel sounds. Tender to palpation diffusely. No guarding or rebound. No mass or distention. EXTREMITIES: No clubbing or cyanosis. MUSCULOSKELETAL: Structure within normal limits. Decreased tone, 4/5 muscle strength. Full range of motion. NEUROLOGIC: No focal deficits. Decreased sensation on bilateral lower extremities, 2/4 deep tendon reflexes. Cranial nerves II through XII intact. PSYCHIATRIC: Appropriate. LABORATORY DATA: WBC 14.2, hemoglobin 12.3, hematocrit 37.3, platelets 342, MCV 96.2, neutrophils 2.9%. Sodium 128, potassium 4.4, chloride 95, CO2 of 22, BUN 11, creatinine 0.85, glucose 148, calcium 9.0, total protein 7.4, albumin 3.2, total bilirubin 1.3, AST 40, ALT 31, alkaline phosphatase 71. PT 15.8, INR 1.2, PTT 35.6. Lactate 1.5. CK 64, lipase less than 4. BNP is 98.8. Chest x-ray, large adenocarcinoma of the left lung, no infiltrates. ASSESSMENT AND PLAN: This is a 56-year-old who presents with: 1. Photosensitivity reaction, likely due to Keytruda, treated as anaphylaxis by EMS. We will monitor overnight. He was treated with steroids and Benadryl. We will consult Oncology. We will likely be able to discharge home tomorrow. 2. Stage IV adenocarcinoma of the left lung, sees Dr. Ludwig as an outpatient , on Keytruda. Continue supplemental O2 p.r.n. Chest x-ray showed large mass in the left lung. The patient will likely benefit from palliative care versus hospice, we will consult case management and will consult Oncology. 3. Hyponatremia, likely secondary to Keytruda. This is new since previous admission and is a side effect of Keytruda, we will monitor. 4. Leukocytosis. The patient is not on immunosuppressant therapy. No source of infection identified; however, the patient does report sore throat and nasal congestion as this is likely secondary to viral upper respiratory infection. Dr. Ludwig did not recommend starting antibiotics at this time. We will check blood cultures and continue to monitor. 5. Hyperbilirubinemia. The patient did not have evidence of hepatic metastases as of 08/26/2016. This could be a medication side effect from Keytruda. The patient is not jaundiced, we will monitor. 6. Transaminitis, isolated elevation of AST. This is mild, likely secondary to medications, we will monitor. 7. Chronic obstructive pulmonary disease. We will continue DuoNebs and supplemental oxygen as needed. 8. Normocytic anemia, likely anemia of chronic disease, stable. We will monitor. 9. Venous thromboembolism prophylaxis, the patient is at low risk for venous thromboembolism prophylaxis. We will give sequential compression devices. 10. Disposition and length of hospital stay. Observation on Oncology, likely discharge home tomorrow if stable. Symptomatic medication will be provided. History and physical exam as well as management discussed with Dr. Roblero. NAVYA
[2016-12-03] MEDS: Morphine IR Tab 15 MG TAB PO PRN ×3 (01:48→13:16)
[2016-12-03 04:21] LABS: #Lymphocytes 0.6 thou/uL (1.20-3.40); #Monocytes 0.6 thou/uL (0.11-0.59); #Neutrophils 16.9 thou/uL (1.40-6.50); %Basophils 0.1 % (0.0-1.0); %Lymphocytes 3.3 % (21.0-51.0); %Monocytes 3.1 % (0.0-10.0); Mean Platelet Volume 7.5 fL (7.4-10.4); Red Blood Cell (RBC) Count 3.69 mill/uL (4.70-6.10); White Blood Cell (WBC) Count 18.1 thou/uL (4.8-10.8)
[2016-12-03 04:34] LABS: ALT (SGPT) 30 U/L (8-55); AST (SGOT) 28 U/L (5-34); Alkaline Phosphatase 61 U/L (40-150); Anion Gap 13 mmol/L (10-20); BUN (Urea Nitrogen) 16 mg/dL (8.4-25.7); Bilirubin, Total 0.4 mg/dL (0.2-1.2); Calc. Creatinine Clearance 84 mL/min (70-130); Calcium 9.2 mg/dL (7.8-10.44); Carbon Dioxide 25 mmol/L (22-29); Chloride 100 mmol/L (98-107); Estimated GFR-MDRD Greater than 90; Globulin 3.8 g/dL (2.4-3.5); Protein, Total 6.7 g/dL (6.0-8.3)
--- NOTE | 2016-12-03 07:59 | PDOC.FM ---
- Subjective Subjective: The patient reports improvement in his symptoms this AM. He states that his rash is less itchy with the medications and the hydrocortisone cream. He denies any further SOB and reports that his pain has remained controlled with his regular outpatient morphine regimen. He wishes to go home today. He declined hospice even after extensive conversations with his oncologist about the fact that his tumor is not responding to chemo. - Objective MAR Reviewed: Yes Vital Signs & Weight: Vital Signs (12 hours) Temp Pulse Resp BP BP Pulse Ox 12/03/16 03:46 97.9 F 72 16 109/63 97 12/02/16 23:18 97.9 F 65 20 131/72 99 12/02/16 20:00 98.1 F 73 16 134/67 95 Weight Weight 55.701 kg I&O: 12/02/16 12/03/16 12/04/16 06:59 06:59 06:59 Intake Total 1360 Output Total 300 Balance 1060 Result Diagrams: 12/03/16 03:59 12/03/16 03:59 <Leeann Kohli - Last Filed: 12/03/16 07:57> - Objective Vital Signs & Weight: Vital Signs (12 hours) Temp Pulse Resp BP BP Pulse Ox 12/03/16 08:19 97.6 F 73 16 124/56 L 124/56 L 97 Weight Weight 55.701 kg I&O: 12/02/16 12/03/16 12/04/16 06:59 06:59 06:59 Intake Total 1360 Output Total 300 Balance 1060 Result Diagrams: 12/03/16 03:59 12/03/16 03:59 <Kisha Sorenson - Last Filed: 12/03/16 15:57> Phys Exam - Physical Examination Constitutional: NAD HEENT: moist MMs Respiratory: no wheezing, no rales, no rhonchi Decreased breath sounds on the left Cardiovascular: RRR, no significant murmur, no rub Musculoskeletal: no edema, pulses present Neurological: non-focal, moves all 4 limbs Psychiatric: normal affect, A&O x 3 Deviation from normal: erythematous papular rash on face and chest <Leeann Kohli - Last Filed: 12/03/16 07:57> Dx/Plan (1) Drug-induced photosensitivity Code(s): L56.8 - OTH ACUTE SKIN CHANGES DUE TO ULTRAVIOLET RADIATION; T50.905A - ADVERSE EFFECT OF UNSP DRUG/MEDS/BIOL SUBST, INIT Status: Acute Plan: Photosensitivity reaction 2/2 Keytruda The rash is improving with steroids, benadryl, and hydrocortisone cream -Will encourage the patient to keep his skin from being exposed to the sun -Will likely d/c today (2) Adenocarcinoma of left lung Code(s): C34.92 - MALIGNANT NEOPLASM OF UNSP PART OF LEFT BRONCHUS OR LUNG Status: Acute Plan: The patient has stage IV adenocarcinoma of the left lung that has continued to progress despite chemotherapy. He has declined hospice despite several attempts over the past few weeks to discuss this with him. After a discussion with Dr. Ludwig, he is at a point where there is nothing further for them to do from their standpoint. He has a very large tumor burden and will likely be in and out of the hospital with chest pain and difficulty breathing until he decides to accept hospice. The patient is on short acting and long acting morphine for pain control. -Consult CM to help find financial assistance to help pay for his morphine -Continue morphine for pain control -Onc on board, appreciate recs (3) Leukocytosis Code(s): D72.829 - ELEVATED WHITE BLOOD CELL COUNT, UNSPECIFIED Status: Acute Qualifiers: Leukocytosis type: unspecified Qualified Code(s): D72.829 - Elevated white blood cell count, unspecified Plan: Leukocytosis likely 2/2 prednisone use -The patient has no signs of infection and is not on immunosuppressant therapy. He has been afebrile since admission, will monitor (4) Hyponatremia Code(s): E87.1 - HYPO-OSMOLALITY AND HYPONATREMIA Status: Resolved Plan: The patient has a corrected sodium this AM of 135. The hyponatremia resolved with fluids as the patient was likely volume down. Will monitor. (5) COPD (chronic obstructive pulmonary disease) Status: Chronic Qualifiers: COPD type: unspecified COPD Qualified Code(s): J44.9 - Chronic obstructive pulmonary disease, unspecified Plan: Patient not in an acute exacerbation -Continue O2 as needed -Continue duonebs as needed (6) Chronic anemia Code(s): D64.9 - ANEMIA, UNSPECIFIED Status: Chronic Plan: The patient has anemia of chronic disease -stable, will monitor <Leeann Kohli - Last Filed: 12/03/16 07:57> Attending Addendum - Attending Addendum I personally evaluated the patient and discussed the management with Dr. Kohli. I agree with the History, Examination, Assessment and Plan documented above with any addition or exceptions noted below. The patient's rash is almost resolved. He is feeling much better and requests to go home. <Kisha Sorenson - Last Filed: 12/03/16 15:57>
[2016-12-03] MEDS ORDERED: predniSONE 20 MG TAB PO SCH (08:00)
[2016-12-03] MEDS: Morphine ER 30 MG TAB PO SCH (08:19)
[2016-12-03] MEDS ORDERED: Polyethylene Glycol 3350 17 GM Packet PO SCH (09:00)
[2016-12-03] MEDS: Hydrocortisone 1% Cream 1.5 GM Packet TOP SCH ×2 (09:15→13:16)
[2016-12-03 09:39] VITALS: BP 124/56; TEMP 97.6
--- NOTE | 2016-12-04 13:18 | DIS-2 ---
DATE OF ADMISSION: 12/02/2016 DATE OF DISCHARGE: 12/03/2016 RESIDENT: Leeann Kohli M.D. ADMITTING ATTENDING: Jacqueline Roblero M.D. DISCHARGE ATTENDING: Kisha Sorenson M.D. CONSULTATIONS: Dr. Hurley with Oncology and Palliative Care. PROCEDURES: None. PRIMARY DIAGNOSES: 1. Drug-induced photosensitivity with initial concern for anaphylaxis. 2. Leukocytosis. 3. Hyponatremia. SECONDARY DIAGNOSES: 1. Adenocarcinoma of the left lung. 2. Chronic obstructive pulmonary disease. 3. Chronic anemia. DISCHARGE MEDICATIONS: 1. Hydrocortisone 1% cream, apply topical q.i.d. to affected area. 2. Dulcolax 10 mg p.o. daily as needed. 3. DuoNeb q.4 hours as needed. 4. Morphine sulfate 15 mg p.o. q.4 hours. 5. Morphine sulfate extended release 30 mg p.o. q.12 hours. 6. MiraLax 17 grams p.o. daily. 7. Tamsulosin 0.4 mg p.o. at bedtime. 8. Benadryl 25 mg p.o. q.6 hours as needed for itching. DISCONTINUED MEDICATIONS: None. HISTORY OF PRESENT ILLNESS AND HOSPITAL COURSE: This is a 56-year-old gentleman with a past medical history of stage 4 adenocarcinoma, who has been treated with Keytruda chemotherapy, who presented w ith a rash and difficulty breathing, was treated as anaphylaxis initially; however, on further quest ioning was realized that this was a photosensitivity reaction, as the patient had spent all weekend outside after being instructed that this chemo agent would have this reaction if his skin was expose d to the sun too much. The patient's difficulty breathing responded to DuoNeb. The patient has a l arge tumor burden as well as COPD. The patient's rash responded well to hydrocortisone cream, Benad ryl, and steroids. The patient had a leukocytosis of 14.3 and 18.1. This is likely due to the ster oids, as the patient had no signs or symptoms of an infection and he is not on an immunosuppressant agent warranting empiric treatment. The patient initially had hyponatremia of 128 that resolved wit h fluids. His CEA level was 96.19, which is lower than it has been in the past at 279.75. The korin ent did initially have a mildly elevated AST at 40 and a total bilirubin at 1.3, but these resolved. His chest x-ray did show that large bulla in the right upper lobe and left-sided lung mass, medias tinal lymphadenopathy redemonstrated. Oncology was consulted and they recommended hospice versus pa lliative care. The patient is very resistant to hospice even in those discussions that he had many times in the past. The patient is at a point where his tumor has progressed even on chemotherapy; h owever, he is not willing to give up hope at this point. Palliative Care came by and spoke to him a nd discussed the difference between palliative care and hospice and he seemed willing to accept pall iative care assistance; however, it was discovered that he is 3 miles outside of the range of the pa lliative care service where the patient lives. The patient's pain has been well controlled on short -acting and long-acting morphine at this point, but will likely require continued followup and pain management. The patient's blood culture did not grow anything. DISPOSITION: Stable. DISCHARGE INSTRUCTIONS: 1. Location: Home. 2. Diet: Regular. 3. Activity: As tolerated. 4. [facility]up[facility] 2:00 p.m. BKyle Ludwig on 12/05/2016 at 3:00 p.m. [facility] within 7 days.
== END 2016-12-03 14:22 | disposition home or self-care (01) ==
LOC: ERS 09:33 → ONC 12:15
PROVIDERS: ADMIT Student in an Organized Health Care Education/Training Program; ATTEND Student in an Organized Health Care Education/Training Program
DX: T88.6XXA Anaphylactic reaction due to adverse effect of correct drug or medicament properly administered, initial encounter (principal); R06.02 Shortness of breath; R21 Rash and other nonspecific skin eruption; D72.829 Elevated white blood cell count, unspecified; E87.1 Hypo-osmolality and hyponatremia; C34.92 Malignant neoplasm of unspecified part of left bronchus or lung; J44.9 Chronic obstructive pulmonary disease, unspecified; D64.9 Anemia, unspecified; M19.90 Unspecified osteoarthritis, unspecified site; F17.210 Nicotine dependence, cigarettes, uncomplicated; Z91.041 Radiographic dye allergy status; Z79.899 Other long term (current) drug therapy; Z98.890 Other specified postprocedural states; Z80.0 Family history of malignant neoplasm of digestive organs
CPT/HCPCS: 36415; 71010; 80053; 82378; 82550; 83605; 83690; 83880; 85025; 85610; 85730; 87040; 93005; 96361; 96374; G0378; J1100; J7506

== ENCOUNTER 2016-12-27 10:47 | Emergency (ER) | payer MEDICAID, OTHER ==
[2016-12-27 11:23] LABS: %Lymphocytes 15.4 % (21.0-51.0); %Monocytes 12.8 % (0.0-10.0); Hematocrit 35.3 % (42.0-52.0); Red Blood Cell (RBC) Count 3.64 mill/uL (4.70-6.10); White Blood Cell (WBC) Count 8.3 thou/uL (4.8-10.8)
[2016-12-27 11:24] LABS: #Eosinphils 0.2 thou/uL (0.0-0.7); #Lymphocytes 1.3 thou/uL (1.20-3.40); #Monocytes 1.1 thou/uL (0.11-0.59); #Neutrophils 5.7 thou/uL (1.40-6.50); %Basophils 0.4 % (0.0-1.0); %Eosinophils 2.8 % (0.0-10.0)
[2016-12-27 11:48] LABS: ALT (SGPT) 14 U/L (8-55); AST (SGOT) 22 U/L (5-34); Alkaline Phosphatase 55 U/L (40-150); Anion Gap 10 mmol/L (10-20); BUN (Urea Nitrogen) 9 mg/dL (8.4-25.7); Bilirubin, Total 0.3 mg/dL (0.2-1.2); Calc. Creatinine Clearance 0 mL/min (70-130); Carbon Dioxide 29 mmol/L (22-29); Chloride 101 mmol/L (98-107); Estimated GFR-MDRD Greater than 90; Globulin 3.9 g/dL (2.4-3.5); Protein, Total 7.2 g/dL (6.0-8.3)
[2016-12-27 12:01] LABS: Troponin I Less than 0.010 ng/mL (< 0.028)
--- NOTE | 2016-12-27 12:03 | RAD ---
EXAM: ONE VIEW CHEST: COMPARISON: 12/01/16. HISTORY: Lung cancer. Cough. FINDINGS: Stable mass occupying the left hemithorax. Stable large bullae in the right lung apex. Stable confi guration of the cardiac silhouette. No pneumothorax. IMPRESSION: No significant interval change. POS: [facility]
[2016-12-27] MEDS ORDERED: Ketorolac Tromethamine 30 MG/ML VIAL ONE (12:59)
[2016-12-27] MEDS ORDERED: Fentanyl 100 MCG/2 ML VIAL ONE (12:59)
--- NOTE | 2016-12-27 13:39 | CT ---
CT ANGIO CHEST PERFORMED WITH INTRAVENOUS CONTRAST ENHANCEMENT WITH 3D RECONSTRUCTIONS: Date: 12/27/16 HISTORY: Shortness of breath. Syncope and chest pain. COMPARISON: 11/24/16 study. FINDINGS: Severe emphysematous lung changes are noted. A large mass is noted within the left upper lobe. This h as now developed some air density in the central portions, although which would suggest some underlyi ng necrosis and possibly underlying developing abscess formation within a large necrotic mass. The me diastinal lymphadenopathy is not improved as compared to the prior study. Thoracic aorta is tortuous. There is good pulmonary artery opacification. There is no CT evidence for pulmonary embolus. A right upper lobe posterior segment pulmonary nodule has developed since that previous exam, measure s 8.0 mm. The visualized liver parenchyma shows no focal abnormalities. Large complex cystic lesion within the spleen is again noted. It is increased in size when compared to the prior exam, now measuring approxi mately 5.4 cm as compared to approximately 4.1 cm on the previous study. IMPRESSION: 1. Large left upper lobe lobulated mass and mediastinal adenopathy. The left upper lobe mass is now developing air density centrally suggesting necrosis and possibly underlying abscess development. 2. Severe emphysematous lung change. 3. Development of a small right upper lobe pulmonary nodule. 4. Enlarging cystic mass of the spleen. 5. No CT evidence for pulmonary embolus. POS: [facility]
[2016-12-27] MEDS ORDERED: HYDROcodone/Acetaminophen 10/325 mg Tablet ONE (15:48)
[2016-12-27] MEDS ORDERED: ISOVUE-370 76%-LOCM 1 ML ONE (17:23)
--- NOTE | 2017-01-21 13:03 | EKG ---
Test Reason : CP Blood Pressure : / mmHG Vent. Rate : 076 BPM Atrial Rate : 076 BPM P-R Int : 148 ms QRS Dur : 086 ms QT Int : 382 ms P-R-T Axes : 070 073 062 degrees QTc Int : 429 ms Normal sinus rhythm Incomplete right bundle branch block Normal ECG Confirmed by TAHMINA CORONADO ([id number]), scientific editor MARY VARGAS ([id number]) on 01/21/2017 1:03:00 PM Referred By: Confirmed By:TAHMINA CORONADO
== END 2016-12-27 16:30 | disposition home or self-care (01) ==
LOC: ERS 10:47
DX: S20.212A Contusion of left front wall of thorax, initial encounter (principal); I10 Essential (primary) hypertension; J45.909 Unspecified asthma, uncomplicated; F41.9 Anxiety disorder, unspecified; Z87.891 Personal history of nicotine dependence; W01.198A Fall on same level from slipping, tripping and stumbling with subsequent striking against other object, initial encounter
CPT/HCPCS: 36415; 71010; 71275; 80053; 82553; 83880; 84484; 85025; 85379; 93005; 96361; 96374; 96375; J1885; J3010

== ENCOUNTER 2017-01-20 06:20 | Emergency (ER) | payer MEDICAID, OTHER ==
[2017-01-20 07:00] LABS: #Eosinphils 0.1 thou/uL (0.0-0.7); #Lymphocytes 1.1 thou/uL (1.20-3.40); #Monocytes 0.7 thou/uL (0.11-0.59); #Neutrophils 11.3 thou/uL (1.40-6.50); %Basophils 0.2 % (0.0-1.0); %Eosinophils 0.5 % (0.0-10.0); %Lymphocytes 8.6 % (21.0-51.0); %Monocytes 5.3 % (0.0-10.0); Hematocrit 33.7 % (42.0-52.0); Mean Platelet Volume 7.1 fL (7.4-10.4); Red Blood Cell (RBC) Count 3.49 mill/uL (4.70-6.10); White Blood Cell (WBC) Count 13.2 thou/uL (4.8-10.8)
[2017-01-20] MEDS ORDERED: HYDROcodone/Acetaminophen 10/325 mg Tablet ONE (07:23)
[2017-01-20 07:33] LABS: ALT (SGPT) 12 U/L (8-55); AST (SGOT) 23 U/L (5-34); Alkaline Phosphatase 54 U/L (40-150); Anion Gap 14 mmol/L (10-20); BUN (Urea Nitrogen) 18 mg/dL (8.4-25.7); Bilirubin, Total 0.5 mg/dL (0.2-1.2); Calc. Creatinine Clearance 0 mL/min (70-130); Calcium 9.5 mg/dL (7.8-10.44); Carbon Dioxide 24 mmol/L (22-29); Chloride 103 mmol/L (98-107); Estimated GFR-MDRD 86; Protein, Total 7.6 g/dL (6.0-8.3)
[2017-01-20] MEDS ORDERED: Piperacillin/Tazobactam 3.375 GM in Sodium Chloride 0.9% 100 ML IVPB ONE (07:45)
--- NOTE | 2017-01-20 08:01 | RAD ---
SINGLE VIEW OF CHEST: Date: 01/20/17 COMPARISON: 12/27/16. HISTORY: Productive cough. Stage IV lung cancer. FINDINGS: Single view of the chest shows a normal sized cardiomediastinal silhouette. A mass-like opacity proje cts over the mid portion of the left thorax. There is a large bulla in the right thorax. No change granger s occurred compared to the prior exam. IMPRESSION: 1. Stable mass in left thorax. 2. Right-sided large pulmonary bulla. POS: [facility]
[2017-01-20 08:08] LABS: Troponin I Less than 0.010 ng/mL (< 0.028)
--- NOTE | 2017-01-20 08:17 | CT ---
CTA OF THE CHEST WITH CONTRAST: COMPARISON: 12/27/16. HISTORY: Shortness of breath. Stage IV cancer with worsening cough for the last few days. TECHNIQUE: Multiple contiguous axial images were obtained in a CTA of the chest with contrast per pulmonary embo lism protocol. Three-D oblique MIP reformats and direct coronal reformats were performed. FINDINGS: The pulmonary arteries are well opacified without filling defects to suggest pulmonary emboli. The h eart is normal in size without focal cardiac abnormality. There are enlarged hilar and mediastinal l ymph nodes. The largest lymph node is seen in the right pretracheal location measuring 4.5 cm in siz e. There is a large mass in the left upper lobe. Currently, this mass measures 8.6 x 13.3 x 11.7 cm in size. This represents the patient's known lung malignancy. There are multiple bullae scattered throughout the lung with paraseptal emphysematous changes present. No other pulmonary masses are see n. The previously seen small nodule in the right upper lobe is not present on today's examination. No pleural effusion or pneumothorax are seen. There is a stable hypodensity in the anterior aspect of the spleen measuring 5.3 cm in size. The oth er visualized subdiaphragmatic structures are unremarkable. Degenerative changes are seen in the spi ne. No suspicious osseous lesions are identified. IMPRESSION: 1. No evidence of pulmonary thromboembolism. 2. Large left upper lobe mass and mediastinal/hilar adenopathy represents the patient's known lung m alignancy with metastatic disease to the mediastinum and hilar region. 3. Severe emphysematous changes with multiple bullae throughout the lungs. 4. Stable splenic hypodensity. POS: [facility]
[2017-01-20 09:33] LABS: Bilirubin Negative (Negative); Blood, Urine Negative (Negative); Glucose, Urine (Dipstick) Negative (Negative); Ketone, Urine Negative (Negative); Nitrite Negative (Negative); Protein, Urine (Dipstick) 30 mg/dL (Neg-Trace)
[2017-01-20 09:35] LABS: Bacteria/HPF None Seen HPF (None Seen); RBC/HPF 0-3 HPF (0-3); Squamous Epithelial 0-3 HPF (0-3)
[2017-01-20 09:51] LABS: Hyaline Casts/LPF 0-3 HYALINE CAST LPF (0-3 Hyaline); Renal Epithelial 0-3 HPF (0-3); Transitional Epithelial 0-3 HPF (0-3)
[2017-01-20] MEDS ORDERED: ISOVUE-370 76%-LOCM 1 ML ONE (17:17)
--- NOTE | 2017-02-01 15:52 | EKG ---
Test Reason : CHEST PAIN Blood Pressure : / mmHG Vent. Rate : 078 BPM Atrial Rate : 078 BPM P-R Int : 150 ms QRS Dur : 088 ms QT Int : 384 ms P-R-T Axes : 072 066 051 degrees QTc Int : 437 ms Normal sinus rhythm Normal ECG Confirmed by RHONDA WALLACE, JAYMIE ([id number]), content editor MARY VARGAS ([id number]) on 02/01/2017 3:52:14 PM Referred By: DR ELLIS Confirmed By:JAYMIE ELLIS MD
== END 2017-01-20 11:31 | disposition home or self-care (01) ==
LOC: ERS 06:20
DX: C34.92 Malignant neoplasm of unspecified part of left bronchus or lung (principal); I10 Essential (primary) hypertension; J45.909 Unspecified asthma, uncomplicated; Z79.899 Other long term (current) drug therapy; Z87.891 Personal history of nicotine dependence
CPT/HCPCS: 36415; 71010; 71275; 80053; 81003; 81015; 82553; 84484; 85025; 87040; 87086; 93005; 96365; J2543; J3370; J7050

== ENCOUNTER 2017-02-14 02:09 | Emergency (ER) | payer OTHER, SELFPAY ==
[2017-02-14] MEDS ORDERED: Morphine 4 MG/ML VIAL ONE (02:46)
[2017-02-14 04:06] LABS: #Basophils 0.1 thou/uL (0.0-0.2); #Eosinphils 0.2 thou/uL (0.0-0.7); #Lymphocytes 1.7 thou/uL (1.20-3.40); #Monocytes 0.9 thou/uL (0.11-0.59); #Neutrophils 8.4 thou/uL (1.40-6.50); %Basophils 0.5 % (0.0-1.0); %Eosinophils 1.8 % (0.0-10.0); %Lymphocytes 14.8 % (21.0-51.0); %Monocytes 7.7 % (0.0-10.0); %Neutrophils 75.2 % (42.0-75.0); Hemoglobin 10.4 g/dL (14.0-18.0); Mean Corpuscular HGB CONC 32.9 g/dL (32.0-36.0); Mean Corpuscular Volume 97.2 fl (80.0-94.0); Platelet Count 394 thou/uL (130-400); RBC Distribution Width 12.6 % (11.5-14.5); Red Blood Cell (RBC) Count 3.25 mill/uL (4.70-6.10); White Blood Cell (WBC) Count 11.2 thou/uL (4.8-10.8)
[2017-02-14 04:19] LABS: ALT (SGPT) 14 U/L (8-55); AST (SGOT) 26 U/L (5-34); Albumin 3.7 g/dL (3.5-5.0); Alkaline Phosphatase 54 U/L (40-150); Anion Gap 13 mmol/L (10-20); BUN (Urea Nitrogen) 19 mg/dL (8.4-25.7); Bilirubin, Total 0.4 mg/dL (0.2-1.2); CK (CPK) 137 U/L (30-200); Calc. Creatinine Clearance 0 mL/min (70-130); Calcium 9.2 mg/dL (7.8-10.44); Carbon Dioxide 24 mmol/L (22-29); Chloride 104 mmol/L (98-107); Estimated GFR-MDRD 76; Globulin 3.7 g/dL (2.4-3.5); Glucose 92 mg/dL (70-105); Potassium 3.8 mmol/L (3.5-5.1); Protein, Total 7.4 g/dL (6.0-8.3); Sodium 137 mmol/L (136-145)
[2017-02-14] MEDS ORDERED: HYDROcodone/Acetaminophen 10/325 mg Tablet ONE (04:58)
--- NOTE | 2017-02-14 07:45 | CT ---
PRELIMINARY REPORT/[facility]/EMERGENCY AFTER HOURS PROCEDURE: EXAM: CT Head Without Intravenous Contrast CLINICAL HISTORY: 56 years old, male; Signs and symptoms; Dizziness; Patient HX: Dizziy, SOB TECHNIQUE: Axial computed tomography images of the head/brain without intravenous contrast. COMPARISON: No relevant prior studies available. FINDINGS: Brain: There is no evidence for acute bleed. Small, age indeterminate infarct noted right cerebellar hemisph ere. There is low attenuation focus right occipital lobe consistent with age indeterminate, but proba ble chronic infarct. There are scattered foci of decreased attenuation in the periventricular and sub cortical white matter, nonspecific, but most consistent with chronic small vessel ischemic changes in patient of this age. Ventricles / cisterns / extra-axial spaces: There is no hydrocephalus, midline shift, or acute extra-axial fluid collection. There is no sulcal e ffacement. Sinuses: No findings of acute sinusitis or suspicious sinus mass. Bone: No acute fracture or displacement. Impression: Small, age indeterminate infarct noted right cerebellar hemisphere. MRI correlation advised. Low attenuation focus right occipital lobe consistent with age indeterminate, but probable chronic in farct. No acute stroke. No hydrocephalus. Chronic microvascular changes. Thank you for allowing us to participate in the care of your patient. Dictated and Authenticated by: Mary Retana MD 02/14/2017 3:33 AM Central Time ([place] & [place]) FINAL REPORT CT BRAIN WITHOUT CONTRAST: I agree with the preliminary report given by [facility]. Given the history of stage IV lung cancer, the possibility of intracranial metastatic disease cannot be excluded. Recommend further evaluation with MRI (with and without IV contrast)is recomended. CODE T POS: OFF
--- NOTE | 2017-02-14 08:20 | RAD ---
PORTABLE AP CHEST: Date: 02-14-17 History: Stage IV lung cancer. Shortness of breath, generalized pain and melalgia. Comparison: 01-20-17 FINDINGS: Again noted is the large mass-like opacity overlying the mid and lower left lung zone. The largest cr aniocaudal dimension measures slightly enlarged measuring 14.6 cm and previously measured 13.7 cm. Th ere is also a mass like opacity overlying the right hilar region which may represent additional overl nilay lung mass or possibly lymphadenopathy. There is also prominence of the right hilar region which may be related to lymphadenopathy in this region as well. Large bulla within the right upper lung is again present and there are chronic lung changes again present bilaterally with scattered areas of sc arring, predominately on the right. Cardiac silhouette and pulmonary vasculature are within normal li mits. No other interval change. IMPRESSION: 1. Slight interval enlargement of large mass within the left lung. 2. Interval enlargement of a bilateral hilar masses which could be related to increase in lymphadenop athy. 3. Chronic lung changes with large bullous emphysematous changes on the right. POS: [facility]
--- NOTE | 2017-03-08 17:49 | EKG ---
Test Reason : Blood Pressure : / mmHG Vent. Rate : 087 BPM Atrial Rate : 087 BPM P-R Int : 148 ms QRS Dur : 084 ms QT Int : 360 ms P-R-T Axes : 074 072 060 degrees QTc Int : 433 ms Normal sinus rhythm Normal ECG Confirmed by WOODY AUGUSTE D.O. ([id number]), avid editor MARY VARGAS ([id number]) on 03/08/2017 5:47:50 PM Referred By: Confirmed By:WOODY AUGUSTE D.O.
== END 2017-02-14 07:06 | disposition home or self-care (01) ==
LOC: ERS 02:09
DX: G89.29 Other chronic pain (principal); C34.90 Malignant neoplasm of unspecified part of unspecified bronchus or lung; I10 Essential (primary) hypertension; J45.909 Unspecified asthma, uncomplicated; F41.9 Anxiety disorder, unspecified; Z87.891 Personal history of nicotine dependence
CPT/HCPCS: 36415; 70450; 71045; 80053; 82550; 85025; 93005; 96361; 96374; J2270

== ENCOUNTER 2017-04-11 02:18 | Inpatient (IN) | payer OTHER ==
[2017-04-11 03:01] LABS: #Monocytes 0.4 thou/uL (0.11-0.59); #Neutrophils 8.8 thou/uL (1.40-6.50); %Basophils 0.1 % (0.0-1.0); %Eosinophils 0.5 % (0.0-10.0); %Lymphocytes 9.4 % (21.0-51.0); %Monocytes 4.1 % (0.0-10.0); Hemoglobin 9.4 g/dL (14.0-18.0); Mean Corpuscular HGB CONC 32.1 g/dL (32.0-36.0); Mean Corpuscular Hemoglobin 29.6 pg (27.0-31.0); Mean Corpuscular Volume 92.3 fl (80.0-94.0); Mean Platelet Volume 6.6 fL (7.4-10.4); Platelet Count 424 thou/uL (130-400); Red Blood Cell (RBC) Count 3.17 mill/uL (4.70-6.10); White Blood Cell (WBC) Count 10.3 thou/uL (4.8-10.8)
[2017-04-11 03:18] LABS: Anion Gap 16 mmol/L (10-20); BUN (Urea Nitrogen) 24 mg/dL (8.4-25.7); Calc. Creatinine Clearance 0 mL/min (70-130); Calcium 9.2 mg/dL (7.8-10.44); Carbon Dioxide 22 mmol/L (22-29); Chloride 102 mmol/L (98-107); Estimated GFR-MDRD 73; Glucose 185 mg/dL (70-105); Potassium 3.6 mmol/L (3.5-5.1); Sodium 136 mmol/L (136-145)
[2017-04-11 03:25] LABS: CKMB 0.6 ng/mL (0-6.6); Troponin I 0.052 ng/mL (< 0.028)
[2017-04-11] MEDS ORDERED: Aspirin 325 MG TAB ONE (05:32)
[2017-04-11] MEDS ORDERED: Ketorolac Tromethamine 30 MG/ML VIAL ONE (06:14)
[2017-04-11 06:48] LABS: Troponin I 0.058 ng/mL (< 0.028)
[2017-04-11] MEDS ORDERED: Acetaminophen 325 MG TAB PO PRN (08:16)
[2017-04-11] MEDS ORDERED: Milk Of Magnesia 30 ML UDCUP PO PRN (08:16)
[2017-04-11 08:19] VITALS: BMI 19.5
--- NOTE | 2017-04-11 08:20 | CT ---
PRELIMINARY REPORT/[facility]/EMERGENCY AFTER HOURS PROCEDURE: EXAM: CT Angiography Chest With Intravenous Contrast CLINICAL HISTORY: 56 years old, male; Pain; Chest pain; Type not specified; Patient HX: R/O pe TECHNIQUE: Axial computed tomographic angiography images of the chest with intravenous contrast using pulmonary embolism protocol. CONTRAST: 100 mL of ISOVUE administered intravenously. COMPARISON: No relevant prior studies available. FINDINGS: Pulmonary arteries: No pulmonary embolism. Numerous left side branches are encased by large mass desc ribed below. Aorta: No acute findings. No thoracic aortic aneurysm. Lungs: Extremely large, lobulated, necrotic appearing 10.0 x 16.5 x 12.0 cm mass, primarily in the le ft upper lobe consistent with neoplasm. Mass extends to the chest wall without visible destruction. Bullous emphysema. Indeterminate 10 mm nodule, right upper lobe. Pleural space: No acute findings. No significant effusion. No pneumothorax. Heart: No acute findings. No cardiomegaly. No significant pericardial effusion. No evidence of RV dys function. Bones/joints: No acute fracture. No dislocation. Soft tissues: No acute findings. Lymph nodes: Bulky, confluent low attenuation mediastinal adenopathy. For example, there is 6.5 x 5.2 cm right anterior paratracheal node extending into the right upper lobe. 6.2 x 5.5 cm prevascular no de extending into the left upper lobe. Spleen: Multiple indeterminate splenic lesions, incompletely evaluated, largest measuring 2.5 cm. Upper abdomen: There is also partial visualization of indeterminate apparent left upper quadrant mass . Dedicated CT A/P is advised. IMPRESSION: Bulky confluent mediastinal adenopathy with large left upper lobe lung mass and partially visualized splenic masses. Findings consistent with neoplasm, perhaps lymphoma. No pulmonary embolism. Numerous left side branches are encased by large mass but remain patent. Bullous emphysema. Indeterminate nodule, right upper lobe. There is also partial visualization of indeterminate apparent left upper quadrant mass. Dedicated CT A/P is advised. Thank you for allowing us to participate in the care of your patient. Dictated and Authenticated by: Mary Retana MD 04/11/2017 5:17 AM Central Time ([place] & [place]) FINAL REPORT CT ANGIOGRAM OF CHEST: Date: 04/11/17 HISTORY: Lung cancer. Three days of worsening shortness of breath. COMPARISON: 01/20/17. TECHNIQUE: CT angiogram of chest performed in the axial plane. Bilateral oblique and coronal three dimensional r eformatted images are submitted for interpretation. FINDINGS: This report is in agreement with the preliminary report by [facility]. Extensive mass/lymphadenopathy invol ving the chest and left upper quadrant, as described in the preliminary report by [facility]. No evidence o f pulmonary artery embolism to the level of the segmental arteries. Extensive and essentially chronic emphysematous changes. POS: [facility]
--- NOTE | 2017-04-11 08:27 | RAD ---
PORTABLE CHEST 1 VIEW: DATE: 04/11/17. TIME: 2:53 p.m. HISTORY: Cough, lung cancer. FINDINGS: Comparison is made with the exam of 02/14/17. The large mass in the left lung is again seen. A large bulla in the right lung is redemonstrated. N o pneumothoraces or pleural effusions are seen. The heart size is stable. There are degenerative ch anges in the spine. There is mass-like fullness in the right hilar/suprahilar region. IMPRESSION: Stable exam. POS: OFF
--- NOTE | 2017-04-11 09:21 | HP ---
PRIMARY CARE PHYSICIAN: The patient does not have a primary care physician. CHIEF COMPLAINT: "My chest is hurting and I am feeling short of breath". HISTORY OF PRESENT ILLNESS: Mr. Bowling is a pleasant 56-year-old gentleman that has a history of stage IV adenocarcinoma of the lungs. He had been previously on hospice therapy, but he felt like they were not doing anything for him and were not seeing about his medical problems and for this reason, he revoked hospice and came to the emergency room. He says that he feels like he needs some type of treatment. He says that he had seen his oncologist and he had been on chemotherapy and had been treated with Keytruda; however, he did not respond to this therapy and was told that there was nothing they could do. He believes that there is some other treatment options for him. He also says that he has been feeling dizzy and coughing. Initially he was coughing up some blood , but now it has turned into a brownish type material. He feels dizzy and weak and has a decrease in appetite. He also says that he vomited a few days ago. No diarrhea and primarily he complains of severe dyspnea on exertion and weakness. The patient denies any fevers or chills, however. REVIEW OF SYSTEMS: CONSTITUTIONAL: Again, no fevers, chills, no night sweats. He has poor appetite. HEENT: No headaches, but he has had some dizziness, no visual changes, no sore throat, no rhinorrhea, no neck pain, no adenopathy. PULMONARY: As the history of present illness. CARDIOVASCULAR: He has chest pain primarily on the left side. No PND, no orthopnea. GASTROINTESTINAL: No abdominal pain. He has had some nausea and vomiting, but no diarrhea, no constipation, no blood in the stools. GENITOURINARY: No urinary frequency, hematuria, no hesitancy. NEUROLOGIC: No focal weakness, numbness, no seizures. PSYCHIATRIC: No symptoms of anxiety or depression. SKIN AND INTEGUMENT: No skin changes. No rash. PAST MEDICAL HISTORY: Stage IV adenocarcinoma of the lungs, COPD with chronic respiratory failure, hypertension and previous tobacco abuse. PAST SURGICAL HISTORY: He had a lung biopsy and jaw surgery. ALLERGIES: GADOLINIUM CONTRAST. SOCIAL HISTORY: He smoked a pack a day for 40 years and is now down to 1-2 cigarettes a day. Denies any alcohol use, no drug use. He wishes to be a FULL CODE. FAMILY HISTORY: Significant for throat cancer in his father. CURRENT MEDICATIONS: Morphine extended release 30 mg twice daily as well as [place] 10/325 q.4 hours as needed for breakthrough pain. PHYSICAL EXAMINATION: GENERAL: He is alert and oriented. He does not appear to be in any acute distress. He is not well-developed. He is actually cachectic in appearance. VITAL SIGNS: Stable. THROAT: There is no erythema, no exudates. He did have some temporal wasting. NECK: There is no adenopathy, no bruits. LUNGS: Clear except for some mild expiratory wheeze and this is scattered. CARDIOVASCULAR: He has a normal S1, S2. I did not appreciate an S3 or S4. No murmurs, clicks or rubs. ABDOMEN: Soft. He has got some right lower quadrant tenderness, but there is no rebound, no guarding. EXTREMITIES: There is no edema. He has significant muscle wasting. LABORATORY: White blood cell count 10.3, hemoglobin 9.4, hematocrit is 29.2, platelet count is 424. Sodium 136, potassium 3.6, chloride is 102, CO2 is 22, BUN of 24, creatinine 1.24, glucose is 185. He had a CT angiogram of the chest. The preliminary reading is negative for pulmonary embolism. It demonstrated the large left upper lobe mass which was extending into the chest wall. There was no mention of any infiltrate and there was also mention of some possible tumor in the adrenal gland as well. His EKG was sinus rhythm, the rate is [address] wave changes. ASSESSMENT AND PLAN: Mr. Bowling is a pleasant 56-year-old gentleman who has advanced adenocarcinoma of the lungs. I suspect most of his symptoms, if not all, are attributed to complications of the cancer. It does not appear that he has any active pneumonia. There is no infiltrate on CT scan. His white blood cell count is normal and he does not have fever. The cough is likely unfortunately from the tumor. There is no evidence of pulmonary embolism, either. His troponins are slightly elevated, but I suspect this is likely due to some demand ischemia. I sat down with the patient and discussed his overall prognosis and what he expects from hospitalization and medical treatment. He initially felt that there was some other active treatment options for him and he felt like hospice was basically just "throwing him out to pasture and giving him medications until he dies". I explained to him that his lung cancer is extremely advanced and it does not appear that he is a candidate for any additional chemotherapy. I had seen Qing Hurley's note back in November of last year that essentially stated the same. The patient has some obvious disappointment with this information. He seems to be a bit bitter in that he says that about 17 years ago, they noted a spot on his lungs not at this facility, but at another location. He said that he had told him about this for years and then he believes that this spot has developed into cancer, so there is some regret with regards to his treatment and I suspect this is a huge obstacle with him accepting his diagnosis as well as prognosis. I asked him had he received any counseling about this. He says, no, that it will only make him more anxious and depressed. He says that he would like to be placed in some type of senior living or long-term because he does not feel that he gets enough help at home in that his brother who lives with him is in his late 70s and he says when he is at home he is essentially by himself. I told him I would speak with case management to see if this is at all possible. However, I did express that this can be difficult with regards to payer sources and he voiced understanding. At this time, we will try to maximize his symptom management by increasing his morphine sulfate to 45 mg twice a day, the extended release as he says he still has 8/10 pain on his current regimen. Hopefully we can get his pain better under control. This will make him a bit more comfortable and hopefully able to lead him toward accepting his prognosis better. NAVYA
[2017-04-11] MEDS: Enoxaparin Sodium 40 MG/0.4 ML SYRINGE SC SCH (09:49)
[2017-04-11] MEDS: Famotidine 20 MG TAB PO SCH ×2 (09:49→19:59)
[2017-04-11] MEDS: Docusate 100 MG CAP PO SCH ×2 (09:49→19:59)
[2017-04-11] MEDS: Morphine ER 15 MG TAB PO SCH ×2 (09:56→19:59)
[2017-04-11 10:10] LABS: Troponin I 0.046 ng/mL (< 0.028)
[2017-04-11] MEDS: HYDROcodone/Acetaminophen 10/325 mg Tablet PO PRN ×2 (12:44→16:47)
[2017-04-11] MEDS ORDERED: ISOVUE-370 76%-LOCM 1 ML ONE (14:24)
[2017-04-12] MEDS: HYDROcodone/Acetaminophen 10/325 mg Tablet PO PRN ×3 (02:55→20:50)
[2017-04-12 04:47] LABS: #Eosinphils 0.1 thou/uL (0.0-0.7); #Lymphocytes 2.1 thou/uL (1.20-3.40); #Monocytes 1.1 thou/uL (0.11-0.59); #Neutrophils 16.6 thou/uL (1.40-6.50); %Eosinophils 0.3 % (0.0-10.0); %Lymphocytes 10.4 % (21.0-51.0); %Monocytes 5.5 % (0.0-10.0); %Neutrophils 83.7 % (42.0-75.0); Hemoglobin 8.9 g/dL (14.0-18.0); Mean Corpuscular HGB CONC 32.2 g/dL (32.0-36.0); Mean Corpuscular Hemoglobin 30.2 pg (27.0-31.0); Mean Corpuscular Volume 93.8 fl (80.0-94.0); Mean Platelet Volume 6.4 fL (7.4-10.4); Platelet Count 404 thou/uL (130-400); RBC Distribution Width 12.4 % (11.5-14.5); Red Blood Cell (RBC) Count 2.95 mill/uL (4.70-6.10); White Blood Cell (WBC) Count 19.8 thou/uL (4.8-10.8)
[2017-04-12] MEDS: Morphine ER 15 MG TAB PO SCH ×2 (08:01→20:51)
[2017-04-12] MEDS: Famotidine 20 MG TAB PO SCH ×2 (08:02→20:51)
[2017-04-12] MEDS: Docusate 100 MG CAP PO SCH ×2 (08:02→20:51)
[2017-04-12] MEDS: Enoxaparin Sodium 40 MG/0.4 ML SYRINGE SC SCH (08:02)
--- NOTE | 2017-04-12 10:17 | PDOC.PN ---
- Subjective Encounter Start Date: 04/12/17 Encounter Start Time: 10:15 Mr. Bowling was seen today in follow-up. He says his pain is a little better controlled today. - Objective Resuscitation Status: Resuscitation Status FULL:Full Resuscitation MAR Reviewed: Yes Vital Signs & Weight: Vital Signs (12 hours) Temp Pulse Resp BP Pulse Ox 04/12/17 08:00 98.2 F 76 20 04/12/17 07:46 98.2 F 76 20 111/61 95 04/12/17 02:52 98.0 F 65 20 114/62 96 04/11/17 23:48 98.7 F 75 16 115/72 92 L Weight Weight 117 lb 11.2 oz I&O: 04/11/17 04/12/17 04/13/17 06:59 06:59 06:59 Intake Total 2988 240 Output Total 600 Balance 2388 240 Result Diagrams: 04/12/17 04:36 04/11/17 02:49 Phys Exam - Physical Examination HEENT: PERRLA Respiratory: no wheezing, no rales, no rhonchi, clear to auscultation bilateral Cardiovascular: RRR, no significant murmur, no rub Gastrointestinal: soft, non-tender, positive bowel sounds Musculoskeletal: no edema Dx/Plan (1) Adenocarcinoma of left lung Code(s): C34.92 - MALIGNANT NEOPLASM OF UNSP PART OF LEFT BRONCHUS OR LUNG Status: Acute (2) Atypical chest pain Code(s): R07.89 - OTHER CHEST PAIN Status: Acute (3) HTN (hypertension), benign Code(s): I10 - ESSENTIAL (PRIMARY) HYPERTENSION Status: Acute - Plan * Patient has been having some cough which is productive, and his WBC count has increased overnight. It is difficult to determine if he has an infiltrate due to the massive tumor burden. Will give a dose of Levaquin IV * Pain is better controlled on the higher dose of MS-Contin * Likely home this afternoon- will try to reach Case- Management with regards to information on Nursing Homes..
[2017-04-13] MEDS: Morphine ER 15 MG TAB PO SCH ×2 (09:29→20:06)
[2017-04-13] MEDS: Famotidine 20 MG TAB PO SCH ×2 (09:29→20:08)
[2017-04-13] MEDS: Docusate 100 MG CAP PO SCH ×2 (09:30→20:08)
[2017-04-13] MEDS: Enoxaparin Sodium 40 MG/0.4 ML SYRINGE SC SCH (09:30)
--- NOTE | 2017-04-13 13:39 | PDOC.PN ---
- Subjective Encounter Start Date: 04/13/17 Encounter Start Time: 13:37 Mr. Bowling was seen today in follow-up. He is still having some cough, and appetite is poor. He also notes a patch on his right flank that is painful, and has been so for months. He describes it as a burning pain. He has tried Gabapentin before, and does not want Lyrica. He asked of there is something topical he could use. - Objective Resuscitation Status: Resuscitation Status FULL:Full Resuscitation MAR Reviewed: Yes Vital Signs & Weight: Vital Signs (12 hours) Temp Pulse Resp BP BP Pulse Ox 04/13/17 11:00 99.6 F 94 16 103/62 90 L 04/13/17 07:59 100.1 F H 95 16 04/13/17 07:41 100.1 F H 95 16 124/51 L 91 L 04/13/17 04:00 99.3 F 94 18 118/63 90 L Weight Admit Weight 117 lb 11.2 oz Weight 117 lb 11.2 oz I&O: 04/12/17 04/13/17 04/14/17 06:59 06:59 06:59 Intake Total 2988 240 Output Total 600 400 Balance 2388 240 -400 Result Diagrams: 04/12/17 04:36 04/11/17 02:49 Phys Exam - Physical Examination HEENT: PERRLA Respiratory: no wheezing, no rales, no rhonchi, clear to auscultation bilateral Cardiovascular: RRR, no significant murmur Gastrointestinal: soft, non-tender, positive bowel sounds Musculoskeletal: no edema Dx/Plan (1) Adenocarcinoma of left lung Code(s): C34.92 - MALIGNANT NEOPLASM OF UNSP PART OF LEFT BRONCHUS OR LUNG Status: Acute (2) Atypical chest pain Code(s): R07.89 - OTHER CHEST PAIN Status: Acute (3) HTN (hypertension), benign Code(s): I10 - ESSENTIAL (PRIMARY) HYPERTENSION Status: Acute (4) COPD (chronic obstructive pulmonary disease) Status: Chronic Qualifiers: COPD type: unspecified COPD Qualified Code(s): J44.9 - Chronic obstructive pulmonary disease, unspecified - Plan * Patient has been having a productive cough, and had an elevated WBC count, and now fever- I suspect he has a Post-obstructive Pneumonia. Will continue Levaquin and add Flagyl and change his status to In-patient * Right flank pain- I suspect this is Neuropathic pain- possibly secondary to his cancer- will add a Lidoderm patch * COPD- stable * HTN- blood pressure is stable.
[2017-04-13 14:24] LABS: #Eosinphils 0.1 thou/uL (0.0-0.7); #Lymphocytes 1.6 thou/uL (1.20-3.40); #Monocytes 1.2 thou/uL (0.11-0.59); #Neutrophils 9.7 thou/uL (1.40-6.50); %Basophils 0.1 % (0.0-1.0); %Eosinophils 0.4 % (0.0-10.0); %Lymphocytes 12.7 % (21.0-51.0); %Monocytes 9.9 % (0.0-10.0); %Neutrophils 76.9 % (42.0-75.0); Hemoglobin 8.8 g/dL (14.0-18.0); Mean Corpuscular HGB CONC 32.4 g/dL (32.0-36.0); Mean Corpuscular Hemoglobin 29.9 pg (27.0-31.0); Mean Corpuscular Volume 92.3 fl (80.0-94.0); Mean Platelet Volume 6.5 fL (7.4-10.4); Platelet Count 379 thou/uL (130-400); RBC Distribution Width 12.3 % (11.5-14.5); Red Blood Cell (RBC) Count 2.96 mill/uL (4.70-6.10); White Blood Cell (WBC) Count 12.5 thou/uL (4.8-10.8)
[2017-04-13] MEDS: metroNIDAZOLE 500 MG in Premix Bag 1 BAG IVPB SCH ×2 (15:30→21:42)
[2017-04-13] MEDS ORDERED: Nicotine 21 MG PATCH TOP SCH (23:15)
[2017-04-13] MEDS ORDERED: Melatonin 3 MG TAB PO SCH (23:15)
[2017-04-13] MEDS: HYDROcodone/Acetaminophen 10/325 mg Tablet PO PRN (23:40)
[2017-04-14] MEDS: metroNIDAZOLE 500 MG in Premix Bag 1 BAG IVPB SCH (05:00)
[2017-04-14 05:50] LABS: #Eosinphils 0.1 thou/uL (0.0-0.7); #Lymphocytes 1.8 thou/uL (1.20-3.40); #Monocytes 1.2 thou/uL (0.11-0.59); #Neutrophils 7.8 thou/uL (1.40-6.50); %Basophils 0.2 % (0.0-1.0); %Eosinophils 1.2 % (0.0-10.0); %Lymphocytes 16.2 % (21.0-51.0); %Monocytes 10.7 % (0.0-10.0); %Neutrophils 71.7 % (42.0-75.0); Hemoglobin 8.7 g/dL (14.0-18.0); Mean Corpuscular HGB CONC 31.8 g/dL (32.0-36.0); Mean Corpuscular Hemoglobin 29.5 pg (27.0-31.0); Mean Corpuscular Volume 92.6 fl (80.0-94.0); Mean Platelet Volume 6.3 fL (7.4-10.4); Platelet Count 379 thou/uL (130-400); RBC Distribution Width 12.3 % (11.5-14.5); Red Blood Cell (RBC) Count 2.95 mill/uL (4.70-6.10); White Blood Cell (WBC) Count 10.8 thou/uL (4.8-10.8)
--- NOTE | 2017-04-14 07:20 | PDOC.PN ---
- Subjective Encounter Start Date: 04/14/17 Encounter Start Time: 07:18 Mr. Bowling was seen today in follow-up. He notes some hemoptysis this morning. His pain is better controlled. - Objective Resuscitation Status: Resuscitation Status FULL:Full Resuscitation MAR Reviewed: Yes Vital Signs & Weight: Vital Signs (12 hours) Temp Pulse Resp BP Pulse Ox 04/14/17 04:00 98.8 F 82 20 110/56 L 97 04/14/17 00:05 95.5 F L 81 20 100/56 L 97 04/13/17 19:48 100.2 F H 96 20 98/58 L 94 L Weight Admit Weight 117 lb 11.2 oz Weight 117 lb 11.2 oz I&O: 04/13/17 04/14/17 04/15/17 06:59 06:59 06:59 Intake Total 240 600 Output Total 400 Balance 240 200 Result Diagrams: 04/14/17 05:25 04/11/17 02:49 Phys Exam - Physical Examination HEENT: PERRLA Respiratory: wheezing present + rhonchi and wheezing Cardiovascular: RRR, no significant murmur Gastrointestinal: soft, non-tender, positive bowel sounds Musculoskeletal: no edema Dx/Plan (1) Adenocarcinoma of left lung Code(s): C34.92 - MALIGNANT NEOPLASM OF UNSP PART OF LEFT BRONCHUS OR LUNG Status: Acute (2) Atypical chest pain Code(s): R07.89 - OTHER CHEST PAIN Status: Acute (3) HTN (hypertension), benign Code(s): I10 - ESSENTIAL (PRIMARY) HYPERTENSION Status: Acute (4) COPD (chronic obstructive pulmonary disease) Status: Chronic Qualifiers: COPD type: unspecified COPD Qualified Code(s): J44.9 - Chronic obstructive pulmonary disease, unspecified - Plan * Post- Obstructive Pneumonia- He is still having some fever, but the WBC count has improved- will continue Levaquin and Flagyl * Stage 4 Adenocarcinoma of the Lung- he is no longer a candidate for treatment due to non-response to Keytruda. He has revoked Hospice- Case- management is involved * HTN- blood pressure is stable * Discharge planning is in progress- Home with Family vs. NH placement.
[2017-04-14 07:54] VITALS: BP 99/51; TEMP 98.5
[2017-04-14] MEDS: Famotidine 20 MG TAB PO SCH (10:10)
[2017-04-14] MEDS: Docusate 100 MG CAP PO SCH (10:10)
[2017-04-14] MEDS: HYDROcodone/Acetaminophen 10/325 mg Tablet PO PRN (10:12)
[2017-04-14] MEDS: Enoxaparin Sodium 40 MG/0.4 ML SYRINGE SC SCH (10:13)
[2017-04-14] MEDS: Morphine ER 15 MG TAB PO SCH (10:13)
--- NOTE | 2017-04-14 10:15 | DIS ---
DATE OF ADMISSION: 04/11/2017 DATE OF DISCHARGE: 04/14/2017 PRIMARY CARE PHYSICIAN: The patient currently does not have a primary care physician. DISCHARGE DISPOSITION: Home. PRIMARY DISCHARGE DIAGNOSES: 1. Shortness of breath. 2. Community-acquired pneumonia. 3. Stage IV adenocarcinoma of the lungs. 4. Chronic respiratory failure secondary to chronic obstructive pulmonary disease. 5. Hypertension. 6. History of tobacco abuse, which is ongoing. DISCHARGE MEDICATIONS: Include Levaquin 500 mg daily for 5 days as well as metronidazole 500 mg q.8 #15 and this is for 5 days, MS Contin was increased to 45 mg q.12 and [place] 10/325 q.6 as needed for pain. PROCEDURES DONE DURING ADMISSION: The patient had a CT angiogram of the chest which was negative for pulmonary embolism; however, there was a bulky fluid mediastinal adenopathy with the left upper lobe lung mass. There were partially visualized masses in the spleen. There was bullous emphysema in th e right upper lobe nodule and an indeterminate mass in the left upper quadrant. CODE STATUS: The patient changed his code status to FULL CODE. ALLERGIES: GADOLINIUM CONTRAST. HOSPITAL COURSE: Mr. Bowling is a 56-year-old gentleman who has a history of stage IV adenocarcinoma o f the lungs. He had been taken off of Keytruda chemotherapy as he was not responding to this and he was released on home hospice a few months prior. The patient, however, felt like hospice was not doi ng anything for him and as a result he came into the hospital as he says he thought he needed some ty pe of treatment. I again reinforced the severity of his lung cancer and also his prognosis. He seem s to be slowly coming around to this idea and it appears as if a large part of his admission because after he had discharged himself from Hospice, he had no way of feeling his medications for pain. The refore, he did get a prescription for MS Contin as well as [place] and he was instructed that in order to get refills on the medication, he will need to reestablish care with a primary care physician. He had been going to [facility] per his report. He will be discharged in the care of a cous in as he said he was no longer able to live with his brother and his [facility]. His hospital course was also complicated by a community-acquired pneumonia which was likely prese nt on admission; however, due to the severe degree of lung cancer on CT scan, it was difficult to vis ualize this. He did have an elevation in his white blood cell count as well as some fever and was pl aced on antibiotics for this. At the time of his discharge, his white count had returned back to [facility]. The patient will be discharged home today and also information on nursing homes was given to th e patient as well.
[2017-04-14] MEDS ORDERED: Nicotine 21 MG PATCH TOP SCH (21:00)
[2017-04-14] MEDS ORDERED: Melatonin 3 MG TAB PO SCH (21:00)
== END 2017-04-14 10:39 | disposition home or self-care (01) | DRG 194 ==
LOC: ERS 02:18 → 2SW 05:58 → OBSVTOIN 05:58 → ONC 04-13 15:45
PROVIDERS: ADMIT Family Medicine; ATTEND Family Medicine
DX: J18.9 Pneumonia, unspecified organism (principal); J96.10 Chronic respiratory failure, unspecified whether with hypoxia or hypercapnia; R64 Cachexia; J44.9 Chronic obstructive pulmonary disease, unspecified; C34.12 Malignant neoplasm of upper lobe, left bronchus or lung; Z68.1 Body mass index [BMI] 19.9 or less, adult; I10 Essential (primary) hypertension; F17.210 Nicotine dependence, cigarettes, uncomplicated; Z91.041 Radiographic dye allergy status; Z92.21 Personal history of antineoplastic chemotherapy
CPT/HCPCS: 36415; 71045; 71275; 80048; 82553; 83880; 84484; 85025; 85379; 87040; 93005; 96361; 96374; J1650; J1885; J1956

== ENCOUNTER 2017-04-15 13:24 | Inpatient (IN) | payer OTHER ==
[2017-04-15 14:16] LABS: #Eosinphils 0.1 thou/uL (0.0-0.7); #Lymphocytes 1.4 thou/uL (1.20-3.40); #Neutrophils 11.2 thou/uL (1.40-6.50); %Basophils 0.1 % (0.0-1.0); %Monocytes 7.6 % (0.0-10.0); %Neutrophils 81.3 % (42.0-75.0); Hemoglobin 9.5 g/dL (14.0-18.0); Mean Corpuscular HGB CONC 33.2 g/dL (32.0-36.0); Mean Corpuscular Hemoglobin 30.6 pg (27.0-31.0); Mean Corpuscular Volume 92.2 fl (80.0-94.0); Mean Platelet Volume 6.8 fL (7.4-10.4); Platelet Count 428 thou/uL (130-400); RBC Distribution Width 12.6 % (11.5-14.5); Red Blood Cell (RBC) Count 3.11 mill/uL (4.70-6.10); White Blood Cell (WBC) Count 13.8 thou/uL (4.8-10.8)
[2017-04-15 14:25] LABS: ALT (SGPT) 13 U/L (8-55); AST (SGOT) 36 U/L (5-34); Albumin 3.5 g/dL (3.5-5.0); Alkaline Phosphatase 56 U/L (40-150); Anion Gap 15 mmol/L (10-20); BUN (Urea Nitrogen) 16 mg/dL (8.4-25.7); Bilirubin, Total 0.6 mg/dL (0.2-1.2); CK (CPK) 79 U/L (30-200); Calc. Creatinine Clearance 0 mL/min (70-130); Calcium 9.1 mg/dL (7.8-10.44); Carbon Dioxide 23 mmol/L (22-29); Chloride 97 mmol/L (98-107); Estimated GFR-MDRD Greater than 90; Globulin 3.7 g/dL (2.4-3.5); Glucose 96 mg/dL (70-105); Potassium 3.6 mmol/L (3.5-5.1); Protein, Total 7.2 g/dL (6.0-8.3); Sodium 131 mmol/L (136-145)
[2017-04-15 14:31] LABS: CKMB 0.7 ng/mL (0-6.6); Troponin I Less than 0.010 ng/mL (< 0.028)
--- NOTE | 2017-04-15 14:39 | RAD ---
AP CHEST: Indication: History of pneumonia. IMPRESSION: The large left lung mass is stable. Large bullae involving the right upper lobe is similar appearing. No pleural effusion or pneumothorax is evident. Cardiomediastinal silhouette is within normal limits . No acute osseous abnormality is evident. COMMENTS: Stable exam to comparison exam dated 04-11-17. POS: [facility]
[2017-04-15] MEDS ORDERED: Piperacillin/Tazobactam 4.5 GM in Sodium Chloride 0.9% 100 ML IVPB SCH (15:15)
--- NOTE | 2017-04-15 15:22 | CT ---
NONCONTRAST HEAD CT: Date: 04/15/17 HISTORY: Pain. Difficulty breathing. Body aches. History of Stage IV lung cancer. COMPARISON: 02/14/17. TECHNIQUE: A noncontrast head CT is performed from the skull base to the skull vertex. FINDINGS: Stable hypoattenuation of the right cerebellar hemisphere. There is vasogenic edema involving the rig ht frontal, parietal, and occipital lobes. There is sulcal effacement without significant mass effect or midline shift. Intracranial metastasis is favored, until proven otherwise. No hydrocephalus. Ther e are chronic small vessel ischemic changes of the white matter. No intra or extra-axial hemorrhage. Intact calvarium. Adequate aeration of the sinuses and mastoid air cells. IMPRESSION: Vasogenic edema involving the right cerebrum, worrisome for intracranial metastasis until proven othe rwise. POS: [facility]
[2017-04-15 18:12] LABS: Lactic Acid 3.7 mmol/L (0.5-2.2)
[2017-04-15] MEDS ORDERED: Acetaminophen 325 MG TAB PO PRN (19:03)
[2017-04-15] MEDS ORDERED: HYDROcodone/Acetaminophen 5/325 mg Tablet PO PRN (19:03)
[2017-04-15] MEDS ORDERED: Ondansetron ODT 4 MG TAB PO PRN (19:03)
[2017-04-15] MEDS ORDERED: Guaifenesin DM 100-10/5 ML UDCUP PO PRN (19:03)
[2017-04-15] MEDS ORDERED: Ondansetron HCl/PF 4 MG/2 ML Vial IVP PRN (19:03)
[2017-04-15] MEDS: Sodium Chloride 0.9% 1,000 ML IV SCH (20:26)
[2017-04-15] MEDS: CABG-Clindamycin/D5W 900 MG in Premix Bag 1 BAG IVPB SCH (20:27)
[2017-04-15] MEDS: Dexamethasone 10 MG/ML VIAL SLOW IVP SCH (20:30)
[2017-04-15] MEDS: Famotidine/PF 20 mg/2ml Vial SLOW IVP SCH (20:31)
[2017-04-15] MEDS: Morphine ER 30 MG TAB PO SCH (20:32)
[2017-04-15] MEDS: Morphine ER 15 MG TAB PO SCH (20:32)
[2017-04-15] MEDS: Nystatin 500,000 UNITS/5 ML UDCUP SSW SCH (20:33)
--- NOTE | 2017-04-15 22:00 | HP ---
DATE OF ADMISSION: 04/15/2017 PRIMARY CARE PHYSICIAN: Roland Lloyd. TIME OF SERVICE: 1730 hours. CHIEF COMPLAINT: Shortness of breath. HISTORY OF PRESENT ILLNESS: Mr. Bowling is a 56-year-old -[place] male known to our service fr om previous admissions. He was last here 04/11/2017 to 04/14/2017 and was admitted for pneumonia. He does have a history of stage IV lung cancer with one point on hospice, but decided that they were not doing anything for him, so he revoked his hospice and wished to be a full code. He presented to the emergency department with shortness of breath and cough that seemed to have worsened since the di scharge yesterday. He was discharged on Levaquin and Flagyl, but had not filled his medications unti l earlier today. He denies any chest pain, no fevers or chills, no rigors. In the emergency department, he was afebri le with a heart rate of 100, satting 99% on 2 liters, but not hypoxic on room air and was given Zosyn . He does have a headache, but no changes in vision or hearing, taste or smell. No weakness above his baseline. Labs in the ER shows white count to be 13.8 up from discharge yesterday of 10.8. Chemistries are thiago rly normal except for sodium of 131, he does meet sepsis criteria. A CT scan of the brain showed vas ogenic edema in the right cerebrum. We were called for admission. PAST MEDICAL HISTORY: Significant for, 1. Stage IV adenocarcinoma of the lung, now with probable brain mets. 2. History of chronic obstructive pulmonary disease. 3. History of tobacco abuse. 4. History of drug abuse with current cocaine, marijuana, and tobacco. His last cocaine use was sup posedly 3-4 months ago, but does continue to smoke marijuana. HOME MEDICATIONS: 1. [place] 10/325 q.6 hours as needed. 2. MS Contin 45 mg p.o. b.i.d. 3. Levofloxacin 500 mg daily. 4. Flagyl 500 mg p.o. t.i.d., he has not been taking this, was discharged yesterday. ALLERGIES: 1. GADOLINIUM. 2. IODINE. There are no drug allergies. FAMILY HISTORY: Significant for dad who with throat cancer. SOCIAL HISTORY: Significant for one pack per day for about 40 years. Now, he is down about 1-2 ciga rettes a day, negative for alcohol or IV drugs. At present, he is a FULL CODE. He revoked his hospi ce status. REVIEW OF SYSTEMS: A 10-point review of systems was performed, negative for all systems except as st ated per HPI. PHYSICAL EXAMINATION: VITAL SIGNS: Temperature 98.9, pulse 99, blood pressure 102/71, respiratory rate 22, satting 99% on 2 liters. He was 91% on room air. GENERAL: He is awake. He is alert. He is oriented x3. He is cachectic looking -[place] kimber grimes. HEENT: Normocephalic, atraumatic. Pupils are equal, round, react to light bilaterally, teeth are in poor repair. Mucous membranes moist. No visible lesions. No thrush. He does have hyperacusis and pain to the scalp. NECK: Supple. There is no lymphadenopathy, no JVD, no thyromegaly. Normal carotid upstrokes withou t bruits. RESPIRATORY: Lungs are clear to auscultation anteriorly, posteriorly some bibasilar crackles. He granger s no wheezing. No prolonged expiratory phase. CARDIOVASCULAR: He is tachycardic around 100. He has had normal S1, S2. I do not appreciate an S3, S4. No systolic murmur. ABDOMEN: Soft, nontender, nondistended, no masses or organomegaly. EXTREMITIES: No cyanosis, no clubbing and trace pedal edema. SKIN: Warm, moist, and well perfused. He has no other rashes or lesions. NEUROLOGIC: Cranial nerves II-XII are grossly intact, he has normal speech. No focal deficits and 5 /5 strength in all 4 extremities. MUSCULOSKELETAL: Normal to inspection. He has no inflamed joints. No palpable effusions. LABORATORY DATA: Sodium 131, potassium 3.6, chloride 97, bicarbonate 23, BUN 16, creatinine of 0.95, glucose 96 and calcium of 7.0. Liver function is completely within normal limits. CBC today showed a white count of 13.8 with a fairly normal differential up from 10.8 yesterday. Hemoglobin is 9.5, hematocrit 28.7, platelet count is 420,000. CK-MB is normal at 0.7. Troponin I is undetectable less than 0.010 and BNP is stable at 118.5. RADIOGRAPHIC STUDIES: Chest x-ray is unchanged from 04/11/2017. Brain CT showed vasogenic edema to the right cerebrum concerning for malignancy. ASSESSMENT AND PLAN: 1. Community-acquired pneumonia: The patient just went home yesterday with that came back. He is h aving increased respiratory symptoms. I will place him back on antibiotics, I have kept him on the s marc antibiotics. He is currently satting 91% on room air, 99% on 2 liters. Respiratory status actua lly sounds fairly good. 2. Stage IV lung cancer, now with probable mets to the brain. The patient was on hospice for [facility] hospice appropriate, though he is not interested. We will get an MRI of the brain. I have consu lted Oncology, and Dr. Stanley with Radiation Oncology. We will start him on Decadron 10 mg IV q.8 mercedes rs, and get an MRI of the brain with and without contrast to better delineate what is up in his brain . 3. Chronic pain. Continue his [place] and his MS Contin per home doses. 4. History of chronic obstructive pulmonary disease, no acute exacerbation. We will continue to galen ch respiratory status. 5. History of tobacco abuse. The patient was counseled, but certainly does not have any intention o f stopping.
[2017-04-15 22:05] VITALS: BMI 20.6
[2017-04-16] MEDS: HYDROcodone/Acetaminophen 10/325 mg Tablet PO PRN ×5 (00:32→20:22)
[2017-04-16 04:44] LABS: #Lymphocytes 0.6 thou/uL (1.20-3.40); #Monocytes 0.2 thou/uL (0.11-0.59); #Neutrophils 9.2 thou/uL (1.40-6.50); %Eosinophils 0.1 % (0.0-10.0); %Lymphocytes 5.5 % (21.0-51.0); %Monocytes 2.2 % (0.0-10.0); %Neutrophils 92.2 % (42.0-75.0); Hemoglobin 8.4 g/dL (14.0-18.0); Mean Corpuscular HGB CONC 31.6 g/dL (32.0-36.0); Mean Corpuscular Hemoglobin 30.4 pg (27.0-31.0); Mean Corpuscular Volume 96.2 fl (80.0-94.0); Mean Platelet Volume 7.2 fL (7.4-10.4); Platelet Count 357 thou/uL (130-400); RBC Distribution Width 12.6 % (11.5-14.5); Red Blood Cell (RBC) Count 2.77 mill/uL (4.70-6.10); White Blood Cell (WBC) Count 9.9 thou/uL (4.8-10.8)
[2017-04-16 04:54] LABS: ALT (SGPT) 9 U/L (8-55); AST (SGOT) 30 U/L (5-34); Alkaline Phosphatase 49 U/L (40-150); Anion Gap 11 mmol/L (10-20); BUN (Urea Nitrogen) 14 mg/dL (8.4-25.7); Bilirubin, Total 0.5 mg/dL (0.2-1.2); Calc. Creatinine Clearance 64 mL/min (70-130); Calcium 8.6 mg/dL (7.8-10.44); Carbon Dioxide 24 mmol/L (22-29); Chloride 103 mmol/L (98-107); Estimated GFR-MDRD Greater than 90; Glucose 152 mg/dL (70-105); Magnesium 1.9 mg/dL (1.6-2.6); Potassium 4.4 mmol/L (3.5-5.1); Sodium 134 mmol/L (136-145)
[2017-04-16] MEDS: Sodium Chloride 0.9% 1,000 ML IV SCH ×3 (04:56→20:18)
[2017-04-16] MEDS: Dexamethasone 10 MG/ML VIAL SLOW IVP SCH ×3 (04:56→20:20)
[2017-04-16] MEDS: CABG-Clindamycin/D5W 900 MG in Premix Bag 1 BAG IVPB SCH ×3 (04:56→20:19)
[2017-04-16] MEDS: Morphine ER 30 MG TAB PO SCH (07:10)
[2017-04-16] MEDS: Morphine ER 15 MG TAB PO SCH (07:11)
[2017-04-16] MEDS: Famotidine/PF 20 mg/2ml Vial SLOW IVP SCH ×2 (07:12→20:21)
[2017-04-16] MEDS: Nystatin 500,000 UNITS/5 ML UDCUP SSW SCH ×4 (07:12→20:22)
[2017-04-16] MEDS ORDERED: Morphine IR Tab 15 MG TAB PO PRN (14:28)
--- NOTE | 2017-04-16 14:33 | MRI ---
MRI BRAIN WITH AND WITHOUT CONTRAST: DATE: 04/16/2017 HISTORY: A 56-year-old male with stage IV lung cancer, with headache and right cerebral edema, found on noncon trast CT. COMPARISON: MRI from 09/04/2016. TECHNIQUE: Multiple sequences obtained in axial, sagittal, and coronal planes; pre and post IV injection of gado linium-based contrast agent: MultiHance 8 mL. FINDINGS: There is a new 2.5 x 3 x 4 cm, rim-enhancing, intraaxial mass in the right parietal-occipital junctio n, with a moderate to large halo of surrounding vasogenic edema, effacing the occipital horn of the r ight lateral ventricle, and mildly extrinsically compressing the trigone of the right lateral ventric le. The rest of the ventricles are normal in size and configuration. The mass has predominantly hyp erintense T2 signal (mixed with streaky intermediate signal) and T1 isointensity relative to the brai n parenchyma. It is surrounded by a thin rim of hemosiderin. There is some extracellular methemoglo bin in the right lateral component of it. In the contralateral left parietal lobe, there is a punctate, tiny focus of hemorrhage associated wit h a tiny, 0.3 cm, round focus of intraaxial enhancement, surrounded by a 1 cm halo of vasogenic edema , representing a second, tiny hemorrhagic metastatic focus. There is a third such lesion, punctate f ocus of intraaxial hemorrhage, with a small halo of surrounding vasogenic edema, in the left superior frontal gyrus, measuring approximately 0.3 cm. There is a cluster of a few old lacunar infarctions in the dentate nucleus of the right cerebellum, w hich was not present on the previous MRI of 09/04/2016. There is no midline shift. The basal cister ns are patent and clear. There is a moderate degree of chronic ischemic white matter changes through out the melo radiata and centrum semiovale and julia, as demonstrated on last year's MRI. IMPRESSION: 1. A total of three intracranial hemorrhagic metastatic lesions. 2. One of them is much larger than the others, in the right parietal-occipital junction, with a larg e halo of surrounding vasogenic edema and at least mild local mass effect. 3. The other two are in the contralateral left cerebrum and are tiny. JN R POS: OFF
--- NOTE | 2017-04-16 15:19 | PDOC.PN ---
- Subjective Encounter Start Date: 04/16/17 Encounter Start Time: 10:50 Pt breathing fine. occasional cough wiht blood tinged sputum, feels like he cant mobiliz eit all. No f/c, no N/v/d/c, no CP. GOLD better Discussed with case management and patient, he wants to go to a NH in [place] near family on d/C. MRI results with 3 hemorrhagic lesions with i much larger in occipital region. awaiting consultation by Raj. Ajay consulted by ER, but pt not a candidate for any chemo - this is clearly state dinpreviosu notes 10 point ROs performed and neg for all systems except as above - Objective Resuscitation Status: Resuscitation Status FULL:Full Resuscitation MAR Reviewed: Yes Vital Signs & Weight: Vital Signs (12 hours) Temp Pulse Pulse Pulse Resp BP BP 04/16/17 11:26 97.1 F L 90 16 04/16/17 10:05 80 79 119/65 110/62 04/16/17 08:00 96.8 F L 85 18 04/16/17 07:19 96.8 F L 85 18 04/16/17 04:00 96.2 F L 82 16 BP Pulse Ox Pulse Ox Pulse Ox 04/16/17 11:26 124/83 04/16/17 10:05 96 100 04/16/17 08:00 04/16/17 07:19 112/60 96 04/16/17 04:00 102/57 L 93 L Weight Admit Weight 123 lb 14.4 oz Weight 123 lb 14.4 oz I&O: 04/15/17 04/16/17 04/17/17 06:59 06:59 06:59 Intake Total 918 Output Total 250 250 Balance 668 -250 Result Diagrams: 04/16/17 03:25 04/16/17 03:25 Radiology Reviewed by me: Yes EKG Reviewed by me: Yes Phys Exam - Physical Examination Constitutional: NAD HEENT: PERRLA, moist MMs, sclera anicteric, oral pharynx no lesions Neck: no nodes, no JVD, supple, full ROM crakles to left base, decreased BS to anterior left Cardiovascular: RRR, no significant murmur, no rub Gastrointestinal: soft, non-tender, no distention, positive bowel sounds Musculoskeletal: no edema, pulses present Neurological: non-focal, normal sensation, moves all 4 limbs Lymphatic: no nodes Psychiatric: normal affect, A&O x 3 Skin: no rash, normal turgor, cap refill <2 seconds Dx/Plan (1) Adenocarcinoma of lung, stage 4 Code(s): C34.90 - MALIGNANT NEOPLASM OF UNSP PART OF UNSP BRONCHUS OR LUNG Status: Acute (2) Brain metastases Code(s): C79.31 - SECONDARY MALIGNANT NEOPLASM OF BRAIN Status: Acute Comment: new diagnosis, ask [facility] for opinion, though if patient plans to go to [facility], this may be not needed here (3) Moderate protein-calorie malnutrition Code(s): E44.0 - MODERATE PROTEIN-CALORIE MALNUTRITION Status: Chronic (4) Arthritis Code(s): M19.90 - UNSPECIFIED OSTEOARTHRITIS, UNSPECIFIED SITE Status: Chronic (5) HTN (hypertension), benign Code(s): I10 - ESSENTIAL (PRIMARY) HYPERTENSION Status: Chronic (6) Physical deconditioning Code(s): R53.81 - OTHER MALAISE Status: Chronic (7) COPD (chronic obstructive pulmonary disease) Status: Chronic Qualifiers: COPD type: unspecified COPD Qualified Code(s): J44.9 - Chronic obstructive pulmonary disease, unspecified (8) H/O drug abuse Code(s): Z87.898 - PERSONAL HISTORY OF OTHER SPECIFIED CONDITIONS Status: Chronic (9) Hypertension Code(s): I10 - ESSENTIAL (PRIMARY) HYPERTENSION Status: Chronic Qualifiers: Hypertension type: essential hypertension Qualified Code(s): I10 - Essential (primary) hypertension Comment: on Amlodipine (10) Tobacco dependence Code(s): F17.200 - NICOTINE DEPENDENCE, UNSPECIFIED, UNCOMPLICATED Status: Chronic Comment: Tobacco cessation resources - Plan cont current plan of care, continue antibiotics, web content & social media manager, out of bed/ ambulate * .
--- NOTE | 2017-04-16 15:36 | CON ---
DATE OF CONSULTATION: 04/16/2017 REASON FOR CONSULTATION: Lung cancer. HISTORY OF PRESENT ILLNESS: Mr. Bowling is an unfortunate 56-year-old -[place] male, who was d iagnosed with a stage IV adenocarcinoma of the lung in 09/2016. He underwent treatment with Keytruda immunotherapy. Unfortunately, had progression in his lung mass on treatment. He was referred by us to hospice at the end of 2016. He did go on for a short period of time, but has had multiple visits to the ER and admissions for shortness of breath and pain control. He states that he had to get off hospice recently, because he had to move out of the house with his father, and he had no stable home that he was living in. Most recently, he was discharged from this facility 2 days ago for pneumonia . Once he left this facility, he once again became short of breath and presented here for treatment. While in the ER, he complained of headaches. A brain CT was done, which showed vasogenic edema inv olving the right frontoparietal and occipital lobes. There was a sulcal effacement without significa nt mass effect or midline shift. I think he is scheduled for a brain MRI. This is worrisome for met astatic disease. The patient has had some weakness and some balance issues. Otherwise, no focal wea kness or visual changes. He does complain of pain as 7/10. PAST MEDICAL HISTORY: 1. Stage IV adenocarcinoma. 2. COPD. 3. Hypertension 4. Emphysema. 5. Anxiety. 6. Chronic tobacco abuse. PAST SURGICAL HISTORY: CT-guided biopsy. ALLERGIES: No known drug allergies. HOME MEDICATIONS: 1. Hydrocodone 10/325. 2. Levaquin 500 mg daily. 3. Flagyl 500 mg daily. 4. MS Contin 45 mg t.i.d. FAMILY HISTORY: He has a father with throat cancer from smoking. SOCIAL HISTORY: Single. He has one daughter who lives alone. A [id number] of smoking. Positive for marijuana use. No alcohol. REVIEW OF SYSTEMS: Twelve-point review of systems is negative except for noted in HPI. PHYSICAL EXAMINATION: VITAL SIGNS: Temperature 97.1, pulse is 90, respiratory rate 16, BP is 124/83, 96% on room air. GENERAL: Cachectic, -[place]zech male, in no acute distress. HEENT: Normocephalic, atraumatic. Pupils equal and reactive to light. NECK: Supple. CARDIOVASCULAR: Regular rate and rhythm. LUNGS: Diminished and his left lobe. ABDOMEN: Soft, nontender, bowel sounds are positive. EXTREMITIES: No clubbing, cyanosis, or edema. SKIN: No rash. HEMATOLOGIC: No petechia or purpura. NEUROLOGIC: Nonfocal. PSYCHIATRIC: The patient is alert and oriented and answering questions appropriately. PERTINENT LABORATORY AND X-RAYS: Current WBCs are 9.9, hemoglobin 8.4, hematocrit 26.6, platelet cou nt is 357,000, 92% neutrophils, 5% lymphocytes. Chemistry is 134, potassium 4.4, chloride 103, CO2 i s 24, BUN is 14, creatinine 1.05. Lactic acid is 3.7, calcium 8.6, magnesium 1.9, total bilirubin is 0.5, AST is 30, ALT is 9, alkaline phosphatase is 49, creatinine kinase is 79. Troponin is negative . BNP is 118.5. Serum total protein is 6, albumin 3, globulin 3. Radiology, per HPI. Brain MRI re port is pending. IMPRESSION: 1. Stage 4 adenocarcinoma of the lung, now with new brain metastasis. 2. Intractable pain. DISCUSSION: The patient had to revoke hospice due to no stable place to live. He has been without h is pain medication for several days. We will resume his MS Contin at 60 mg b.i.d. He states that he has a friend that is willing to take him to [place] to stay there. We will consult case management for their assistance with facilitating discharge planning. The patient is not a candidate for furthe r chemotherapy at this time given his very difficult social situation and poor performance status. I also said he would do very poorly without brain radiation, although Dr. Stanley is planning to see him later today. Thank you for the consult. We will follow his hospital remotely.
--- NOTE | 2017-04-17 00:16 | CON ---
DATE OF CONSULTATION: 04/16/2017 REASON FOR CONSULTATION: Mr. Bowling is a 56-year-old gentleman with a long history of metastatic rayne ocarcinoma of the lung. He has just been diagnosed with brain metastasis. HISTORY OF PRESENT ILLNESS: Mr. Bowling was diagnosed with lung cancer in 2017. This was a poorly dif ferentiated adenocarcinoma. The original stage is unknown to me. He was treated with immunotherapy, but progressed through the immunotherapy. He has pretty massive disease in the chest. He was recen tly hospitalized for pneumonia. He was discharged and then returned the next day because of complain ts of continued shortness of breath and chest pain as well as dizziness. A CT scan of the head was p erformed which showed vasogenic edema concerning for metastatic disease. An MRI of the brain was per formed earlier today which showed 3 metastatic lesions in the brain. The largest measures a little o speedy 3 cm and had surrounding vasogenic edema. He has been placed back on antibiotics for presumed re currence of his pneumonia. Recent CT scan of the chest shows massive disease in the chest. He is qu ite weak and has lost 30-40 pounds. He is barely able to ambulate with a walker. He complains not o nly pain in the chest, but in multiple areas. His pain is poorly controlled at admission because his social situation is difficult. He has difficult time in getting his medication. He has been having headaches, but this is improved since being started on steroids. He did have some vomiting before a dmission, but it does not have vomiting now. His breathing remains difficult and he has a cough whic h is nonproductive. He has occasional hemoptysis. He denies any focal neurological symptoms. He vo ices no other complaints. PAST MEDICAL HISTORY: 1. Stage IV adenocarcinoma of the lung. 2. Chronic obstructive pulmonary disease. 3. History of tobacco abuse and drug abuse in the past. MEDICATIONS: [place], [place] Contin, levofloxacin. ALLERGIES: No known medical allergies. FAMILY HISTORY: His father from throat cancer. SOCIAL HISTORY: He smoked 1 pack per day for 40 years. He has decreased this, but still smokes at t he present. He denies any alcohol or drug use at the present. He was living in [place] with his older brother. He has very little support here at home. REVIEW OF SYSTEMS: A 10-system review of systems is otherwise negative. PHYSICAL EXAMINATION: VITAL SIGNS: His height is 5 feet 5 inches, weight is 123 pounds, blood pressure is 124/83, pulse is 90, respirations are 16, temperature 97.1, O2 saturation is 96%. GENERAL: He is alert and oriented and in no apparent distress. He is thin in appearance. Karnofsky performance status is 40-50%. HEENT: Pupils are equal, round, reactive to light. Extraocular movements are intact. ENT: Oral ca vity and oropharynx normal without lesion or erythema. Palate elevates symmetrically. Gingiva is in tact. NECK: Supple, without cervical or supraclavicular adenopathy. No thyromegaly. Larynx midline. LUNGS: Breathing is nonlabored. He has absent breath sounds in the left lower lobe. Otherwise, mick ar to auscultation. HEART: Regular rate and rhythm without murmur. No lower extremity edema. ABDOMEN: Bowel sounds present. Soft, nontender, nondistended, without mass or hepatosplenomegaly. Liver percussed to normal size. LYMPHATIC: Shotty adenopathy in both axilla and both inguinal regions. These are tender on palpatio n. NEUROLOGIC: Cranial nerves II-XII grossly intact. Motor strength is 5/5 in both upper and lower ext remities in all muscle groups tested. Reflexes are brisk but symmetrical. Gait was not tested. RADIOLOGIC: Recent CT angiogram was personally reviewed. He has massive disease in the chest and lucy ng. He has massive mediastinal adenopathy and massive disease in the left chest. CT scan of the hea d and MRI of the brain were also personally reviewed. Again, he has at least three brain metastases. The largest measures 3.1 cm and is in the right parietal occipital area with surrounding vasogenic edema. LABORATORY AND X-RAY FINDINGS: Original pathology showed poorly differentiated adenocarcinoma. CBC on admission showed white blood cell count of 13,800 with hemoglobin of 9.5 and hematocrit of 28.7. Platelet count 428,000. Repeat WBC today was 9900. Chemistry group revealed sodium of 134 with a cr eatinine of 1.02. Albumin is decreased at 3.0. ASSESSMENT: Mr. Bowling is a 56-year-old gentleman with widespread stage IV metastatic adenocarcinoma of the lung. He has massive disease in the chest and I believe he is symptomatic from his disease in his chest with his chronic shortness of breath and occasional hemoptysis. He also has brain metasta sis. His symptoms from his brain metastasis are improved with Decadron therapy. PLAN: I had a lengthy discussion with Mr. Bwoling. His social situation is quite poor unfortunately. He basically is living by himself as his older brother is unable to provide any meaningful help. He had been on hospice care in the past, but was unable to find benefit from this, likely because of hi s poor social situation. Because of his poor performance status and his massive disease extracranial ly with no systemic options for treatment, I think his survival is likely to be quite short. I do no t think radiation therapy would impact his survival or quality of life in any meaningful way. I thin k he would get more benefit with supportive care with an organization such as hospice than he would a t radiation therapy because of his massive disease and poor performance status. The logistics of rad iation as well as the benefits and risks of treatment were discussed with him. Even if he were to wa nt to pursue radiation, he likely would not be able to come for treatment as he has no transportation . Again, I think that with a survival being so short, I think that radiation therapy would likely no t provide any meaningful benefit. He has been in conversation with his daughter. Social service is looking into the possibility of having him transferred to [place] to a nursing facility near his [facility] where she can help providing care. I think if he can have a nursing care and have hospice care, then I think that would actually benefit him the most. I agree with the initiation of Decadron. De cadron can be used to control his symptoms from his brain metastasis and hospice can also help him wi th his pain control. He presently does have quite a bit of pain. This was all discussed in depth wi th Mr. Bowling. He is agreeable with hospice care if that can be arranged with him being transferred t o [place].
[2017-04-17 04:36] LABS: Anion Gap 13 mmol/L (10-20); BUN (Urea Nitrogen) 17 mg/dL (8.4-25.7); Calc. Creatinine Clearance 69 mL/min (70-130); Calcium 8.7 mg/dL (7.8-10.44); Carbon Dioxide 23 mmol/L (22-29); Chloride 104 mmol/L (98-107); Estimated GFR-MDRD Greater than 90; Glucose 161 mg/dL (70-105); Magnesium 2.1 mg/dL (1.6-2.6); Potassium 4.3 mmol/L (3.5-5.1); Sodium 136 mmol/L (136-145)
[2017-04-17 04:43] LABS: Band 8 % (5-11); Hemoglobin 8.3 g/dL (14.0-18.0); MDiff Complete? YES; Mean Corpuscular HGB CONC 32.2 g/dL (32.0-36.0); Mean Corpuscular Hemoglobin 30.3 pg (27.0-31.0); Mean Corpuscular Volume 94.2 fl (80.0-94.0); Mean Platelet Volume 6.8 fL (7.4-10.4); Monocytes 1 % (0-10); Neutrophil 91 % (42-75); PLT Morphology Comment Appears Adequate; Platelet Count 385 thou/uL (130-400); RBC Distribution Width 12.7 % (11.5-14.5); Red Blood Cell (RBC) Count 2.72 mill/uL (4.70-6.10); White Blood Cell (WBC) Count 25.1 thou/uL (4.8-10.8)
[2017-04-17] MEDS: Dexamethasone 10 MG/ML VIAL SLOW IVP SCH ×2 (05:07→12:57)
[2017-04-17] MEDS: CABG-Clindamycin/D5W 900 MG in Premix Bag 1 BAG IVPB SCH ×2 (05:08→12:57)
[2017-04-17 08:22] VITALS: BP 114/62; TEMP 96.3
[2017-04-17] MEDS ORDERED: Senokot 8.6 MG TAB PO PRN (09:20)
[2017-04-17] MEDS ORDERED: Milk Of Magnesia 30 ML UDCUP PO PRN (09:20)
[2017-04-17] MEDS: Nystatin 500,000 UNITS/5 ML UDCUP SSW SCH ×2 (09:22→12:57)
[2017-04-17] MEDS: Famotidine/PF 20 mg/2ml Vial SLOW IVP SCH (09:23)
[2017-04-17] MEDS: Sodium Chloride 0.9% 1,000 ML IV SCH (12:47)
[2017-04-17] MEDS: HYDROcodone/Acetaminophen 10/325 mg Tablet PO PRN (13:03)
[2017-04-17] MEDS ORDERED: Famotidine 20 MG TAB PO SCH (21:00)
[2017-04-17] MEDS ORDERED: Docusate 100 MG CAP PO SCH (21:00)
--- NOTE | 2017-04-18 10:33 | DIS ---
DATE OF ADMISSION: 04/15/2017 DATE OF DISCHARGE: 04/17/2017 DISCHARGE DISPOSITION: Discharged home with hospice. HISTORY OF PRESENT ILLNESS AND HOSPITAL COURSE: The patient is a very pleasant 56-year-old -A merican unfortunate male who has a history stage IV adenocarcinoma of the lung. The patient admitted to the hospital with worsening shortness of breath. The patient was put on antibiotics for communit y-acquired pneumonia and also was seen by Oncology. The patient, during the hospital stay, underwent an MRI of the brain given his complaints of headache. The patient on the MRI of the brain was found to have development of 3 intracranial hemorrhagic metastatic lesions, one of them as much larger shaheed n the other in the right parietal occipital junction with a large area of surrounding vasogenic edema and at least mild local mass effect. The patient was seen by Radiation Oncology for possible radiat ion. However, the patient was considered as a poor candidate for any radiation. The patient was dis charged home with hospice with pain medication and with p.o. Decadron. He will follow up with hospic e and Oncology as outpatient. DISCHARGE MEDICATIONS: Medications on discharge were as the following: The patient received dexamet hasone 10 mg p.o. t.i.d., Colace 100 mg p.o. b.i.d., Pepcid 20 mg b.i.d., lactobacillus 1 cap daily, levofloxacin 750 mg daily, nystatin 500,000 p.o. q.i.d., Zofran 4 mg q.6 hours p.r.n., Senokot 2 tabs p.o. at bedtime p.r.n. The patient also was sent home with Flagyl 500 mg p.o. q.8 hours, morphine s ulfate slow release 60 mg p.o. b.i.d. and hydrocodone 10 mg one p.o. q.4 hours p.r.n. PHYSICAL EXAMINATION: VITAL SIGNS: Temperature of 96.7, heart rate of 77, blood pressure of 114/62. GENERAL: Awake, alert, oriented x3, does not appear in distress. CARDIOVASCULAR: S1, S2 present. No murmurs, rubs or gallops. RESPIRATORY: Mild rhonchi noted all over lungs. EXTREMITIES: No edema noted. DISCHARGE DIAGNOSES: 1. Stage IV lung cancer with brain metastasis. 2. Most likely obstructive pneumonia. Continue antibiotic for the next 7 days. 3. Acute on chronic respiratory failure, the patient currently not hypoxic. 4. Hypertension, stable. 5. Chronic obstructive pulmonary disease, continue home DuoNebs.
--- NOTE | 2017-04-26 14:23 | EKG ---
Test Reason : Blood Pressure : / mmHG Vent. Rate : 096 BPM Atrial Rate : 096 BPM P-R Int : 132 ms QRS Dur : 088 ms QT Int : 358 ms P-R-T Axes : 071 070 056 degrees QTc Int : 452 ms Normal sinus rhythm Cannot rule out Anterior infarct , age undetermined Abnormal ECG Confirmed by SHIRLEY Leonard, MIL ([id number]), book editor MARY VARGAS ([id number]) on 04/26/2017 2:21:44 PM Referred By: Confirmed By:MIL WATSON M.D.
== END 2017-04-17 15:25 | disposition hospice, home (50) | DRG 193 ==
LOC: ERS 13:24 → T4-B 16:45
PROVIDERS: ADMIT Internal Medicine Infectious Disease; ATTEND Internal Medicine Infectious Disease
DX: J18.9 Pneumonia, unspecified organism (principal); G93.6 Cerebral edema; C34.90 Malignant neoplasm of unspecified part of unspecified bronchus or lung; C79.31 Secondary malignant neoplasm of brain; E46 Unspecified protein-calorie malnutrition; F17.210 Nicotine dependence, cigarettes, uncomplicated; F12.90 Cannabis use, unspecified, uncomplicated; G89.3 Neoplasm related pain (acute) (chronic); Z68.20 Body mass index [BMI] 20.0-20.9, adult; Z60.2 Problems related to living alone
CPT/HCPCS: 36415; 70450; 70553; 71045; 80048; 80053; 82550; 82553; 83605; 83735; 83880; 84484; 85025; 87040; 93005; 96361; 96365; 96366; 96367; 96375; A4216; G8978-GP-CK; G8979-GP-CI; G8987-GO-CI; G8988-GO-CI; G8989-GO-CI; J1100; J1956; J2270; J2543; J3490; J7050; S0028